=== PATIENT | male | born 1980 | race African-American/Black ===

== ENCOUNTER 2019-03-23 10:56 | Emergency (ER) | payer OTHER, SELFPAY ==
[2019-03-23 11:05] VITALS: BP 142/81; PULSE 98; RESP 16; TEMP 36.8; O2SAT 100
--- NOTE | 2019-03-23 11:26 | ED.URI ---
HPI - URI/Sore Throat General Chief Complaint: Upper Respiratory Infection Stated Complaint: Sore Throat/Stuffy Nose Time Seen by Provider: 03/23/19 11:26 Source: patient and RN notes reviewed History of Present Illness HPI Narrative: Patient is a 38-year-old male that presents the urgent care with complaints of sore throat, stuffy nose, left ear pain, postnasal drainage, body aches. Patient states that started 3 days ago and he is taken some of his mother's old amoxicillin. Patient is also used [id number] cough medication. States that his daughter was diagnosed with the flu. No other acute complaints. No acute distress noted. Patient aware the plan of care. Related Data Allergies Allergy/AdvReac Type Severity Reaction Status Date / Time No Known Allergies Allergy Verified 03/23/19 11:23 Review of Systems Review of Systems: Narrative: CONSTITUTIONAL: Reports of chills EYES: Denies visual changes, redness, or discharge. ENT: Reports of postnasal drainage, nasal congestion, sore throat CARDIOVASCULAR: Denies chest pain, palpitations, or edema. RESPIRATORY: Denies cough or dyspnea. GASTROINTESTINAL: Denies abdominal pain, nausea, vomiting, or diarrhea. GENITOURINARY: Denies dysuria or hematuria. SKIN: Denies rash or itching. MUSCULOSKELETAL: Denies back pain, joint pain; reports of body aches NEUROLOGIC: Denies headache, numbness, or weakness. All other systems reviewed are negative, except as documented in HPI. PMFSH Social History Social History Smoking status: Current some day smoker Tobacco type: cigars Comments At the time of my signature, I reviewed and agree with the nursing past medical, surgical, social, and family history. There is no relevant family history pertinent to the patient complaint. Exam Narrative: Exam Narrative: GENERAL: This is a well-nourished, well-developed patient, in no apparent distress. HEAD: normocephalic, atraumatic. EYES: PERRL. Sclera clear/white. Vision is grossly intact. EARS: External ears normal, auditory canals clear and without drainage, mild fluid noted behind bilateral TMs, TMs normal without perforation. Hearing grossly intact. NOSE: External nose normal with no obvious nasal discharge, bilateral erythemic nares with clear rhinorrhea THROAT: Mucous membranes moist, moderate erythema noted posterior oropharynx with moderate postnasal drainage. NECK: Neck supple, non-tender without lymphadenopathy, masses or thyromegaly. CARDIOVASCULAR: Regular rate and rhythm without murmurs, gallops, or rubs. RESPIRATORY: Clear to auscultation. Breath sounds equal bilaterally. No wheezes, rales, or rhonchi. SKIN: warm, intact with no suspicious lesions or rash, good texture and turgor. NEURO: awake, alert, and oriented to person, place and time. There were no obvious focal neurologic abnormalities. EXTREMITIES: No clubbing, cyanosis, or edema. Course Vital Signs Vital signs: Vital Signs Temperature 98.3 F 03/23/19 11:05 Pulse Rate 98 03/23/19 11:05 Respiratory Rate 16 03/23/19 11:05 Blood Pressure 142/81 H 03/23/19 11:05 Pulse Oximetry 100 03/23/19 11:05 Temperature 98.3 F 03/23/19 11:05 Pulse Rate 98 03/23/19 11:05 Respiratory Rate 16 03/23/19 11:05 Blood Pressure 142/81 H 03/23/19 11:05 Pulse Oximetry 100 03/23/19 11:05 Reviewed?patient is informed that they may have pre-hypertension or hypertension based on a blood pressure reading in the department. I recommend the patient call the primary care provider listed on their discharge instructions or a physician of their choice this week to arrange follow-up for further evaluation of possible pre-hypertension or hypertension. MDM - URI/Sore Throat MDM Narrative Medical decision making narrative: Reviewed lab results with the patient. He is aware that strep swab was negative. Educated patient on culture we will call within 72 hours if culture is po
== END 2019-03-23 11:43 | disposition home or self-care (01) ==
PROVIDERS: Emergency Provider Nurse Practitioner Family
DX: B34.9 Viral infection, unspecified (principal); F17.290 Nicotine dependence, other tobacco product, uncomplicated
CPT/HCPCS: 87081; 87804; 87880; 99213; G0463

== ENCOUNTER 2019-05-15 11:53 | Outpatient (CLI) | payer OTHER, SELFPAY ==
[2019-05-15 16:44] LABS: Basophils Absolute Auto 0.1 K/mm3 (0.0-0.1); Basophils Percent Auto 0.8 % (0.2-1.2); Eosinophils Absolute Auto 0.2 K/mm3 (0-0.3); Eosinophils Percent Auto 3.1 % (0-4.4); Hematocrit 50.9 % (42.0-52.0); Hemoglobin 16.9 g/dL (14.0-18.0); Immature Granulocyte Absolute 0.02 K/mm3 (0.00-0.031); Immature Granulocyte Percent A 0.3 % (0-0.5); Lymphocytes Absolute Auto 2.75 K/mm3 (0.9-3.2); Lymphocytes Percent Auto 35.1 % (18.3-44.2); Mean Corpuscular HGB Conc 33.2 g/dl (32-36); Mean Corpuscular Hemoglobin 29.4 pg (26-34); Mean Corpuscular Volume 88.7 fl (80-100); Mean Platelet Volume 9.3 fl (7.4-10.4); Monocytes Absolute Auto 0.5 K/mm3 (0.1-0.6); Monocytes Percent Auto 6.5 % (2.6-8.5); Neutrophils Absolute Auto 4.3 K/mm3 (1.3-6.7); Neutrophils Percent Auto 54.2 % (45.5-73.1); Platelet Count Result 321 k/mm3 (150-375); Red Blood Count 5.74 M/mm3 (4.6-6.20); Red Cell Distribution Width 12.9 % (11.5-14.5); White Blood Count 7.8 K/mm3 (4.5-10.0)
[2019-05-15 16:48] LABS: Add Urine Microscopic? YES; Appearance Urine Clear (Clear); Bilirubin Urine Negative (Negative); Blood Urine Negative (Negative); Color Urine Yellow (Yellow); Glucose Urine UA Negative (Negative); Ketones Urine Negative (Negative); Leukocyte Esterase Ur Negative LEU/UL (Negative); Mucus Urine Rare /lpf; Nitrate Urine Negative (Negative); Protein Urine Negative (Negative); RBC Urine 0-2 /hpf (0-2); Specific Grav Ur 1.024 (1.001-1.035); Squamous Epithelial Cell Urine Occasional /hpf (Few); Urobilinogen Urine Negative mg/dL (<2.0); WBC Urine 0-3 /hpf
[2019-05-15 16:57] LABS: Alanine Aminotransferase 25 U/L (4-50); Albumin Level 4.3 g/dL (3.5-5.1); Alkaline Phosphatase 67 U/L (38-126); Amylase 40 U/L (30-110); Aspartate Amino Transferase 28 U/L (17-59); Bilirubin,Total 0.6 mg/dL (0.2-1.3); Blood Urea Nitrogen 14 mg/dL (9-20); CRP < 0.5 mg/dL (<1.0); Calcium 9.4 mg/dL (8.4-10.2); Carbon Dioxide 30 mmol/L (22-30); Chloride 102 mmol/L (98-107); Estimated Glomerular Filt Rate > 60; Glucose 141 mg/dL (75-110); Lipase 50 U/L (23-300); Magnesium 1.8 mg/dL (1.6-2.3); Potassium 4.4 mmol/L (3.4-5.0); Sodium 137 mmol/L (137-145)
== END 2019-05-15 11:54 | disposition home or self-care (01) ==
LOC: ANHBWCLAB 11:56
PROVIDERS: PCP Family Medicine; Visit Provider Family Medicine
DX: Z79.899 Other long term (current) drug therapy (principal); R11.2 Nausea with vomiting, unspecified; K52.1 Toxic gastroenteritis and colitis; T36.95XA Adverse effect of unspecified systemic antibiotic, initial encounter
CPT/HCPCS: 36415; 80053; 81001; 82150; 83690; 83735; 85025; 86140

== ENCOUNTER 2019-05-16 10:29 | Outpatient (CLI) | payer OTHER, SELFPAY ==
[2019-05-21 14:26] LABS: EBV Nuclear Ab Interpretation Past; EBV Virus Capsid Ag IgM Ab <36.00 U/mL (<36.00)
== END 2019-05-16 10:30 | disposition home or self-care (01) ==
LOC: ANHBWCLAB 10:30
PROVIDERS: PCP Family Medicine; Visit Provider Family Medicine
DX: R11.2 Nausea with vomiting, unspecified (principal); K52.1 Toxic gastroenteritis and colitis; T36.95XA Adverse effect of unspecified systemic antibiotic, initial encounter
CPT/HCPCS: 36415; 86664; 86665; 87045; 87046; 87427

== ENCOUNTER 2019-05-25 10:57 | Emergency (ER) | payer OTHER, SELFPAY ==
[2019-05-25 11:02] VITALS: BP 156/73; PULSE 98; RESP 16; TEMP 36.4; O2SAT 100
--- NOTE | 2019-05-25 11:18 | ED.GENADULT ---
HPI - General Adult General Chief complaint: Extremity Injury, Upper Stated complaint: right pointer injury Time Seen by Provider: 05/25/19 11:37 Source: patient Mode of arrival: ambulatory Limitations: no limitations History of Present Illness HPI narrative: 39-year-old male patient presents to the [facility] with complaints of right index finger pain. Patient states that he is a diabetic that is currently taking metformin. Patient denies any insulin. Patient states that he does bite his fingers a lot and has since he was a child and states he knows he gets a lot of infections when he does this. Patient states that he noticed that the swelling to the tip of the right index finger has gotten increasingly worse the past 2 to 3 days. Patient states he has been warm soaking it and just regular warm water as well soaking it and hydrogen peroxide. Patient states he does take Sinclair on a daily basis for back pain but he states that that has not helped pain either. Patient states he was unable to sleep last night due to the throbbing pain. Denies any discharge coming from the site that he is aware of. Denies any fevers. Related Data Allergies Allergy/AdvReac Type Severity Reaction Status Date / Time No Known Allergies Allergy Verified 05/25/19 11:13 Review of Systems Review of Systems: Narrative: CONSTITUTIONAL: Denies fever, chills, or sweats. EYES: Denies visual changes, redness, or discharge. ENT: Denies rhinorrhea, congestion, sore throat, or otalgia. CARDIOVASCULAR: Denies chest pain, palpitations, or edema. RESPIRATORY: Denies cough or dyspnea. GASTROINTESTINAL: Denies abdominal pain, nausea, vomiting, or diarrhea. GENITOURINARY: Denies dysuria or hematuria. SKIN: Denies rash or itching. Positive swelling and pain to the right index finger around the nail x2 to 3 days. MUSCULOSKELETAL: Denies back pain, joint pain, or myalgia. NEUROLOGIC: Denies headache, numbness, or weakness. PSYCHIATRIC: Denies anxiety or depression. [facility] Past Medical History Medical History Anxiety Essential hypertension PTSD (post-traumatic stress disorder) Seasonal allergic reaction Surgical History Surgical History H/O hand surgery Family History Family History Father Hypertension Diabetes mellitus Mother Lupus Anxiety Social History Social History Smoking status: Current some day smoker Tobacco type: cigars Alcohol intake: never Substance use: never Comments At the time of my signature I agree with nursing past medical history, surgical, social, and family history. There is no relevant family history pertinent to the presenting complaint. Exam Narrative: Exam Narrative: GENERAL: Well-appearing, well-nourished, and in no acute distress. HEAD: Normocephalic, atraumatic. EYES: PERRLA and EOMI. ENT: Nares clear, no rhinorrhea or epistaxis. Mucous membranes moist. NECK: Supple. No lymphadenopathy CHEST: Clear to auscultation. No respiratory distress. HEART: Regular rate and rhythm. No murmur heard. Normal peripheral pulses. ABDOMEN: Soft, nontender, nondistended, normal active bowel sounds. EXTREMITIES: Normal range of motion. No edema. SKIN: Warm, dry, no rash. Patient has swelling, warmth and tenderness noted to the right distal index finger right around the nail. Very tender to the touch. There is no active drainage noted. NEURO: No focal deficits. Alert and oriented x3. Course Vital Signs Vital signs: Vital Signs Temperature 36.4 C L 05/25/19 11:02 Pulse Rate 98 05/25/19 11:02 Respiratory Rate 16 05/25/19 11:02 Blood Pressure 156/73 H 05/25/19 11:02 Pulse Oximetry 100 05/25/19 11:02 Temperature 36.4 C L 05/25/19 11:02 Pulse Rate 98 05/25/19 11:02 Respiratory Rate 16 04
== END 2019-05-25 11:56 | disposition home or self-care (01) ==
PROVIDERS: Emergency Provider Nurse Practitioner Family; PCP Family Medicine
DX: L03.011 Cellulitis of right finger (principal); E11.9 Type 2 diabetes mellitus without complications; Z79.84 Long term (current) use of oral hypoglycemic drugs; I10 Essential (primary) hypertension; F17.290 Nicotine dependence, other tobacco product, uncomplicated
CPT/HCPCS: 10160; 99213; G0463

== ENCOUNTER → 2019-06-14 00:10 | Day surgery (SDC) | payer OTHER, SELFPAY ==
[2019-06-12 13:43] VITALS: BMI 28.0
[2019-06-14 11:22] VITALS: BMI 27.4
[2019-06-14 11:40] LABS: Glucose Point of Care 173 (65-105)
[2019-06-14 11:41] VITALS: BP 131/86; PULSE 86; RESP 16; TEMP 36.7; O2SAT 98
[2019-06-14] MEDS: LACTATED RINGERS 1,000 ML 150 ML IV CONT (12:00)
--- NOTE | 2019-06-14 12:48 | WPDANESEPPF ---
Anes - Initial Pre Proc Eval Procedure: Operation Date: 06/14/19 12:30 Proposed Procedures p Esophagogastroduodenoscopy - Kelechi Sandoval MD Date/Time: 06/14/19 12:48 Surgeon: Kelechi Sandoval MD Pre Op Diagnosis: Abdominal Pain Patient Data Age: 39 Gender: M Height: 5 ft 10 in Weight: 86.9 kg Last Vital Signs Temp 36.7 C 06/14/19 11:41 Pulse 86 06/14/19 11:41 Resp 16 06/14/19 11:41 BP 131/86 06/14/19 11:41 Pulse Ox 98 06/14/19 11:41 Allergies Allergy/AdvReac Type Severity Reaction Status Date / Time No Known Allergies Allergy Verified 06/14/19 11:21 Home Medications Medication Instructions Recorded Confirmed Type atenolol 50 mg tablet 50 mg PO DAILY #90 tablet 03/23/19 06/14/19 Rx sertraline 50 mg tablet 100 mg PO DAILY #60 tablet 04/16/19 06/14/19 Rx triamterene 37.5 1 tablet PO QAM 06/04/19 06/14/19 History mg-hydrochlorothiazide 25 mg tablet alprazolam 0.5 mg tablet 0.5 mg PO DAILY PRN #30 tablet 06/08/19 06/12/19 Rx amlodipine 10 mg PO DAILY 06/14/19 06/14/19 History cephalexin 1,000 mg PO Q12H 06/14/19 06/14/19 History Laboratory Tests 06/14/19 11:38 POC Capillary Glucose 173 mg/dl H mg/dl (65-105) Patient hx anesthesia problems: none Family hx anesthesia problems: none PMFSH Past Medical History Medical History Anxiety Essential hypertension PTSD (post-traumatic stress disorder) Seasonal allergic reaction Surgical History Surgical History H/O hand surgery Family History Family History Father Hypertension Diabetes mellitus Mother Lupus Anxiety Social History Social History Smoking status: Former smoker Tobacco type: cigars Alcohol intake: never Substance use: never Anes - Eval Final PreProcedure Day of Procedure 06/14/19 12:48 Patient weight: overweight Heart: regular rate and rhythm Lungs: clear to auscultation Airway: Mallampati scale class II Neurological: alert and oriented Last oral intake: >/= 8 hours ASA classification: III Emergent: no Anesthetic plan: proceed Anesthesia type and monitoring: general GIVS and standard monitoring Informed Consent: The patient's anesthetic plan and its attendant risks and benefits were discussed with the patient/family/POA. Questions were solicited and answers provided to the satisfaction of the patient/family/POA.
--- NOTE | 2019-06-14 16:27 | SUR.PREOP ---
1405 PATIENT LEFT AMA DUE TO DELAY WITH STARTING PROCEDURE. ROBERTO CARLOS BLOOM
== END | disposition home or self-care (01) ==
PROVIDERS: PCP Family Medicine; Visit Provider Internal Medicine Gastroenterology
PROC: 0DJ08ZZ Inspection of Upper Intestinal Tract, Via Natural or Artificial Opening Endoscopic (ICD-10-PCS; CPT 43235; principal; 2019-06-14 12:30)
DX: R10.11 Right upper quadrant pain (principal); R10.12 Left upper quadrant pain; Z53.29 Procedure and treatment not carried out because of patient's decision for other reasons
CPT/HCPCS: 99212; G0463; J2001; J2704; J7120

== ENCOUNTER 2019-11-05 00:47 | Outpatient (CLI) | payer OTHER, MEDICAID, SELFPAY ==
[2019-11-05 18:01] LABS: SARS-CoV-2 RNA PCR Negative
== END 2019-11-05 00:48 | disposition home or self-care (01) ==
LOC: ANHCOVIDDT 00:47
PROVIDERS: PCP Family Medicine; Visit Provider Urology
DX: Z01.812 Encounter for preprocedural laboratory examination (principal); Z20.828 Contact with and (suspected) exposure to other viral communicable diseases
CPT/HCPCS: 87635; C9803; U0003

== ENCOUNTER 2019-11-07 00:51 | Day surgery (SDC) | payer MEDICAID, SELFPAY ==
[2019-10-25 15:09] VITALS: BMI 28.1
[2019-11-07] MEDS: ACETAMINOPHEN 500 MG TABLET 1000 MG PO (10:28)
[2019-11-07 10:30] VITALS: BP 144/80; PULSE 101; RESP 18; TEMP 36.6; O2SAT 98
[2019-11-07 10:47] LABS: Glucose Point of Care 204 (65-105)
[2019-11-07] MEDS: LACTATED RINGERS 1,000 ML 30 ML IV CONT (11:01)
--- NOTE | 2019-11-07 11:09 | SUR.PREOP ---
Notified Dr. Santos patient's BG 204 in pre op check. Per Dr. Santos no further orders indicated at this time.
--- NOTE | 2019-11-07 11:14 | P.PNAN_ITS ---
Anes - Initial Pre Proc Eval Procedure: Operation Date: 11/07/19 12:00 Proposed Procedures p Excision And CO2 Laser Penile Condyloma - Hema Gallo MD Date/Time: 11/07/19 11:14 Surgeon: Hema Gallo MD Pre Op Diagnosis: Penile Condylomas Patient Data Age: 39 Gender: M Height: 5 ft 9 in Weight: 90.4 kg Last Vital Signs Temp 97.9 F 11/07/19 10:30 Pulse 101 H 11/07/19 10:30 Resp 18 11/07/19 10:30 BP 144/80 H 11/07/19 10:30 Pulse Ox 98 11/07/19 10:30 Allergies Allergy/AdvReac Type Severity Reaction Status Date / Time No Known Allergies Allergy Verified 06/14/19 11:21 Home Medications Medication Instructions Recorded Confirmed Type triamterene 37.5 1 tablet PO QAM 06/04/19 10/25/19 History mg-hydrochlorothiazide 25 mg tablet amlodipine 10 mg tablet 10 mg PO DAILY #90 tablet 07/03/19 11/07/19 Rx atenolol 50 mg tablet 50 mg PO DAILY #90 tablet 07/03/19 10/25/19 Rx sertraline 50 mg tablet 100 mg PO DAILY #60 tablet 07/24/19 11/07/19 Rx alprazolam 0.5 mg tablet 0.25 mg PO DAILY PRN #14 tablet 09/03/19 11/07/19 Rx Laboratory Tests 11/07/19 10:44 POC Capillary Glucose 204 mg/dl H mg/dl (65-105) Patient hx anesthesia problems: none Family hx anesthesia problems: none [facility] Social History Social History Smoking status: Former smoker Tobacco type: cigars Alcohol intake: never Substance use: never Living arrangements: alone Gender identity (if verbalized by the patient): Male Sexual Orientation (if Verbalized by the Patient): Straight or Heterosexual Spiritual care concerns: No Anes - Eval Final PreProcedure Day of Procedure 11/07/19 11:14 Patient weight: overweight Heart: regular rate and rhythm Lungs: clear to auscultation Airway: Mallampati scale class II Neurological: alert and oriented Last oral intake: >/= 8 hours ASA classification: III Emergent: no Anesthetic plan: proceed Anesthesia type and monitoring: general GIVS and standard monitoring Informed Consent: The patient's anesthetic plan and its attendant risks and benefits were discussed with the patient/family/POA. Questions were solicited and answers provided to the satisfaction of the patient/family/POA.
--- NOTE | 2019-11-07 12:10 | WPDHPUPDATE1 ---
History and Physical Update Update Date/Time: 11/07/19 12:10 History and Physical has been reviewed, including an updated exam of the patient. There are NO changes in the patient's condition. Risks, benefits, and alternatives have been discussed and questions answered. Patient agrees to proceed with procedure.
[2019-11-07] MEDS: ceFAZolin 2 GM/D5W 50 ML 2 GM/50 ML BAG IVPB (12:20)
[2019-11-07] MEDS: NEOMYCIN/POLYMYXIN/BACITRACIN OINTMENT 15 GM TUBE 1 APPLIC TOPICAL (12:48)
--- NOTE | 2019-11-07 12:51 | P.OP_ITS ---
Procedure Note - Detailed Date of procedure: 11/07/19 Pre-op diagnosis: Penile Condylomas Post-op diagnosis: same Procedure performed: Excision and CO2 laser of condyloma Description of procedure: Informed consent was obtained. Patient in the operating room. He was given a mac anesthetic. He was prepped and draped in normal sterile fashion. We injected 0.5% Marcaine without epinephrine. A total of 5 lesions on the penis were identified measuring between 1 and 20 mm in size. A eligibility services representative lesion was excised and sent as specimen. We then used the CO2 laser to cauterize the base of the excision site. We then used the CO2 laser in order to destroy all remaining lesions. We then irrigated, and again used the CO2 laser to all sites. Ascitic acid was applied and there was no residual lesions noted. We then irrigated the placed antibiotic ointment and a compressive dressing. Patient was taken to PACU in stable condition. Anesthesia: MAC Surgeon: Hema Gallo MD Estimated blood loss (mL): 0 Drains: No Packing: No Pathology: yes Complications: No immediate complications Condition: stable Disposition: PACU
[2019-11-07 12:55] VITALS: BP 140/73; PULSE 90; RESP 12; O2SAT 98
[2019-11-07 13:16] LABS: Glucose Point of Care 173 (65-105)
[2019-11-07 13:20] VITALS: BP 133/70; PULSE 80; RESP 14
--- NOTE | 2019-11-07 13:29 | SUR.PHASEII ---
DISCHARGE HOME WHEN STABLE. ADVANCE DIET TOLERATED. ENCOURAGE FLUIDS. CALL OFFICE TO SCHEDULE FOLLOW-UP APPOINTMENT FOR 2 WEEKS [phone]
[2019-11-07 13:49] VITALS: BP 125/78; PULSE 86; RESP 14
[2019-11-07 14:15] VITALS: BP 133/77; PULSE 78; RESP 16
--- NOTE | 2019-11-07 14:22 | SUR.PHASEII ---
Accucheck done on arrival to outpt recovery. Results 173.
[2019-11-07 14:45] VITALS: BP 136/77; PULSE 76; RESP 16
== END 2019-11-07 14:55 | disposition home or self-care (01) ==
PROVIDERS: PCP Family Medicine; Visit Provider Urology
PROC: (CPT 54057; principal; 2019-11-07 12:00)
DX: A63.0 Anogenital (venereal) warts (principal); Z87.891 Personal history of nicotine dependence
CPT/HCPCS: 54057; 11420; 88305; A9270; J0690; J2250; J2704; J3010; J7120

== ENCOUNTER 2021-03-10 13:17 | Outpatient (CLI) | payer OTHER, SELFPAY ==
--- NOTE | ~2021-03-10 | XR_ITS ---
EXAMINATION: XR chest 2V DATE: 03/10/2021 13:25 INDICATION: Cough, unspecified. TECHNIQUE: Frontal and lateral views of the chest were obtained. COMPARISON: None. FINDINGS: The chest demonstrates clear lungs without pneumonia, pleural effusion, or pneumothorax. Th e heart size is normal. IMPRESSION: 1. No acute cardiopulmonary disease. Reviewed, dictated and finalized at location A. 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
== END 2021-03-10 13:18 | disposition home or self-care (01) ==
LOC: ANHBWCIMG 13:18
PROVIDERS: PCP Family Medicine; Visit Provider Family Medicine
DX: R05.9 Cough, unspecified (principal); R09.81 Nasal congestion; U07.1 COVID-19
CPT/HCPCS: 71046

== ENCOUNTER 2021-03-16 15:24 | Outpatient (CLI) | payer OTHER, SELFPAY ==
[2021-03-16 19:02] LABS: D Dimer 0.27 ug/mL (<0.48)
== END 2021-03-16 15:25 | disposition home or self-care (01) ==
LOC: ANHBWCLAB 15:26
PROVIDERS: PCP Family Medicine; Visit Provider Family Medicine
DX: R06.00 Dyspnea, unspecified (principal); R06.02 Shortness of breath
CPT/HCPCS: 36415; 85380

== ENCOUNTER 2021-03-23 12:17 | Outpatient (CLI) | payer OTHER, SELFPAY ==
--- NOTE | 2021-03-23 12:55 | ECG_ITS ---
Measurements Intervals [place] Rate: 78 P: 82 FL: 137 QRS: 65 QRSD: 104 T: -1 QT: 355 QTc: 405 Interpretive Statements SINUS RHYTHM BORDERLINE ST-T WAVE ABNORMALITY- INFERIOR LEADS BASELINE ARTIFACT- I, II, AVR, AVL, AVF, V4 BORDERLINE ECG Electronically Signed On 03-23-2021 13:58:47 FRAUD MANAGER by Jonatan Bailey D.O.
== END 2021-03-23 12:18 | disposition home or self-care (01) ==
LOC: ANHCARD 12:20
PROVIDERS: PCP Family Medicine; Visit Provider Family Medicine
DX: R06.00 Dyspnea, unspecified (principal); R94.31 Abnormal electrocardiogram [ECG] [EKG]
CPT/HCPCS: 93005

== ENCOUNTER 2021-03-25 12:55 | Outpatient (CLI) | payer OTHER, SELFPAY ==
--- NOTE | ~2021-03-25 | CT_ITS ---
EXAMINATION: CTA chest PE protocol DATE: 03/25/2021 13:59 INDICATION: COVID infection in January, TECHNIQUE: Computed tomography angiography (CTA) of the chest was performed with 100 mL Omnipaque-350 intravenous contrast timed to evaluate the pulmonary arteries. Coronal maximum intensity projection 3D-reconstructions were created by the technologist. Automated exposure control and iterative reconst ruction technique were employed. Exam dose: 493.10 mGy-cm total exam DLP. COMPARISON: 03/10/2021 2 view chest FINDINGS: There is diagnostic enhancement of the pulmonary arteries and no evidence of pulmonary embo lism. Normal heart size. No pericardial or pleural effusion. No hilar or mediastinal mass lesion or lymphadenopathy. Normal morphology of the adrenal glands. No pulmonary infiltrate or consolidation or pulmonary mass lesion. Included skeletal structures are unremarkable. IMPRESSION: Negative examination; no evidence of pulmonary embolism Reviewed, dictated and finalized at Location A. Reviewed, dictated and finalized at location B. AND GAS LEASE PUMPER
[2021-03-25 13:33] LABS: Estimated Glomerular Filt Rate > 60
== END 2021-03-25 12:56 | disposition home or self-care (01) ==
LOC: ANHIMG 13:01
PROVIDERS: PCP Family Medicine; Visit Provider Internal Medicine Pulmonary Disease
DX: U07.1 COVID-19 (principal); R06.00 Dyspnea, unspecified
CPT/HCPCS: 71275; Q9967

== ENCOUNTER 2021-04-16 13:17 | Outpatient (CLI) | payer OTHER, MEDICAID, SELFPAY ==
--- NOTE | 2021-04-16 13:38 | ECHO_ITS ---
Patient Info Name: Amadeo Thurman Age: 40 years : 1980 Gender: Male Ht: 69 in Wt: 188 lbs BSA: 2.05 m2 HR: 78 bpm BP: 133 / 86 mmHg Technical Quality: Good Exam Date: 04/16/2021 2:57 PM Exam Location: [facility] Patient Status: Outpatient Admit Date: 04/16/2021 Staff Ordering Physician: Lew Nunez MD Lining Stamper: Kendra Stephens RDCS Attending Provider: Lew Nunez MD Referring Physician: Enrique CASAS; Exam Type: CA echo doppler color flow Study Info Indications - sob Complete two-dimensional, color flow and Doppler transthoracic echocardiogram is performed. Summary 1. Complete two-dimensional, color flow and Doppler transthoracic echocardiogram is performed. 2. Left ventricular chamber dimension is normal. 3. Left ventricular systolic function is normal, estimated at 60-65%. 4. The left ventricular diastolic function is normal. 5. E/e' 6 is not elevated. 6. No pulmonary hypertension, estimated pulmonary arterial systolic pressure is 27 mmHg. 7. There is trace pulmonic regurgitation. Left Ventricle E/e' 6 is not elevated. Left ventricular chamber dimension is normal. Left ventricular systolic function is normal, estimated at 60-65%. The left ventricular diastolic function is normal. Right Ventricle Right ventricular chamber dimension is normal. Right ventricular systolic function is normal. Left Atria Left atrial chamber dimension is normal. Right Atria Right atrial chamber dimension is normal. Aortic Valve The aortic valve is trileaflet. There is no aortic valve stenosis. There is no aortic valve regurgitation. Pulmonic Valve There is trace pulmonic regurgitation. Mitral Valve There is no mitral valve stenosis. There is no mitral valve regurgitation. Tricuspid Valve There is no tricuspid valve regurgitation. No pulmonary hypertension, estimated pulmonary arterial systolic pressure is 27 mmHg. Pericardium/Pleural There is no pericardial effusion. Inferior Vena Cava Normal inferior vena cava with >50% collapse upon inspiration consistent with normal right atrial pressure, 5 mmHg. Aorta The aortic root size at the sinus of Valsalva is normal. Left Ventricular Outflow Tract Name Value Normal LVOT 2D LVOT Diameter 2.0 cm LVOT Doppler LVOT Peak Gradient 5 mmHg LVOT Mean Gradient 3 mmHg LVOT VTI 20 cm LVOT VTI/AV VTI Ratio 0.9 LVOT Stroke Volume 61 ml LVOT CO 15.9 l/min LVOT CI 7.7 l/min/m2 Pulmonic Valve Name Value Normal PV Doppler PV Peak Gradient 3 mmHg Mitral Valve
--- NOTE | 2021-04-17 12:59 | WPDPFTINT ---
PFT Procedure Performed PFT Procedure Performed Spirometry with Pre/Post Bronchodilator Plethysmography (Lung Vol) Diffusing Cap (DLCO) Flow Vol Loop PFT Interpretation Lung volumes were measured with body plethysmography method. Lung volumes are unremarkable. Spirometry showed normal forced vital capacity, normal FEV1 but diminished mid expiratory flow rates at 54% predicted, indicative of mild obstructive airway disease. Following administration of a bronchodilator there was no significant increase in expiratory flow rates. Lung diffusion capacity is mildly reduced at 75% predicted. The flow volume loop is consistent with small airway disease. Impression: Mild obstructive airway disease with no response to bronchodilators on this testing. Mild reduction in lung diffusion capacity.
--- NOTE | 2021-04-17 13:02 | WPDSIXMINUTE ---
Six Minute Walk Procedure Procedure Performed Pulmonary Stress Test (6 min walk) Six Minute Walk This 6 minute walk test was carried out with the patient breathing ambient air. The pre walk oxyhemoglobin saturation was 97%. The patient walked 152 m without any stops. Patient's gait was unstable due to lightheadedness; he used a wheeled walker. The perceived dyspnea at baseline was 1 on the Yehuda scale and increased to 3 at the end of the walk. Impression: Six minute walk test limited by lightheadedness and unsteady gait. No evidence of oxyhemoglobin desaturation.
== END 2021-04-16 13:18 | disposition home or self-care (01) ==
LOC: ANHPFT 13:22
PROVIDERS: PCP Family Medicine; Visit Provider Internal Medicine Pulmonary Disease
DX: R06.02 Shortness of breath (principal); U07.1 COVID-19; J40 Bronchitis, not specified as acute or chronic; Z72.0 Tobacco use; R06.00 Dyspnea, unspecified; R94.2 Abnormal results of pulmonary function studies
CPT/HCPCS: 93306; 94060; 94618; 94726; 94729

== ENCOUNTER 2021-12-25 15:05 | Outpatient (CLI) | payer BC, SELFPAY | END 2021-12-25 15:06 | disposition home or self-care (01) | LOC: ANHBWCLAB 15:07 | PROVIDERS: PCP Family Medicine; Visit Provider Family Medicine | DX: Z79.899 Other long term (current) drug therapy (principal) | CPT/HCPCS: 80299 ==

== ENCOUNTER 2022-04-23 08:12 | Outpatient (CLI) | payer BC, SELFPAY ==
[2022-04-23 19:37] LABS: Hemoglobin A1C 6.5 % (<5.7)
[2022-04-23 19:54] LABS: Alanine Aminotransferase 25 U/L (6-50); Albumin Level 4.6 g/dL (3.5-5.1); Alkaline Phosphatase 71 U/L (38-126); Anion Gap 4 mmol/L (8-16); Aspartate Amino Transferase 61 U/L (17-59); Bilirubin,Total 0.9 mg/dL (0.2-1.3); Blood Urea Nitrogen 16 mg/dL (9-20); Calcium 9.2 mg/dL (8.4-10.2); Carbon Dioxide 30 mmol/L (22-30); Chloride 102 mmol/L (98-107); Estimated Glomerular Filt Rate > 60; Glucose 112 mg/dL (65-110); Sodium 136 mmol/L (137-145)
[2022-04-23 20:04] LABS: Vitamin D 25 Hydroxy 21.9 ng/mL
[2022-04-23 20:18] LABS: MALB Creatinine Ratio 11.4 mg/g (0-30); Microalbumin Urine Random 19.1 mg/L (0-16.7)
[2022-04-28 14:29] LABS: Testosterone Free 95.6 pg/mL (35.0-155.0); Testosterone Total 537 ng/dL (250-1100)
== END 2022-04-23 08:13 | disposition home or self-care (01) ==
LOC: ANHBWCLAB 08:13
PROVIDERS: PCP Family Medicine; Visit Provider Family Medicine
DX: E11.9 Type 2 diabetes mellitus without complications (principal); E55.9 Vitamin D deficiency, unspecified; R68.82 Decreased libido
CPT/HCPCS: 36415; 80053; 82043; 82306; 83036; 84402; 84403

== ENCOUNTER 2022-07-07 10:41 | Outpatient (CLI) | payer BC, MEDICAID, SELFPAY | END 2022-07-07 10:42 | disposition home or self-care (01) | LOC: ANHBWCAUD 10:42 | PROVIDERS: PCP Family Medicine; Visit Provider Family Medicine | DX: R42 Dizziness and giddiness (principal) | CPT/HCPCS: 92557; 92567 ==

== ENCOUNTER 2022-10-04 11:49 | Outpatient (CLI) | payer BC, MEDICAID, SELFPAY ==
[2022-10-04 19:08] LABS: Hematocrit 46.8 % (42.0-52.0); Hemoglobin 15.5 g/dL (14.0-18.0); Mean Corpuscular HGB Conc 33.1 g/dl (32-36); Mean Corpuscular Hemoglobin 29.9 pg (26-34); Mean Corpuscular Volume 90.3 fl (80-100); Mean Platelet Volume 9.5 fl (7.4-10.4); Platelet Count Result 300 k/mm3 (150-375); Red Blood Count 5.18 M/mm3 (4.6-6.20); Red Cell Distribution Width 12.8 % (11.5-14.5)
[2022-10-04 19:48] LABS: Creatinine Urine 273.5 mg/dL
[2022-10-04 19:58] LABS: Amphetamine Screen Urine Negative (Negative); Barbiturate Screen Urine Negative (Negative); Benzodiazepines Screen Urine Positive (Negative); Cannabinoid Screen Urine Negative (Negative); Cocaine Screen Urine Negative (Negative); MALB Creatinine Ratio 13.6 mg/g (0-30); Methadone Screen Urine Negative (Negative); Microalbumin Urine Random 37.1 mg/L (0-16.7); Opiate Screen Urine Positive (Negative); Phencyclidine Screen Urine Negative (Negative)
[2022-10-04 20:13] LABS: Hemoglobin A1C 8.1 % (<5.7)
== END 2022-10-04 11:50 | disposition home or self-care (01) ==
LOC: ANHBWCLAB 11:52
PROVIDERS: PCP Family Medicine; Visit Provider Family Medicine
DX: E11.9 Type 2 diabetes mellitus without complications (principal); Z79.899 Other long term (current) drug therapy; G89.4 Chronic pain syndrome; J45.901 Unspecified asthma with (acute) exacerbation; R42 Dizziness and giddiness
CPT/HCPCS: 36415; 80307; 82043; 83036; 85027

== ENCOUNTER 2022-12-22 09:53 | Outpatient (CLI) | payer MEDICAID, SELFPAY ==
--- NOTE | ~2022-12-22 | XR_ITS ---
XR hand RT min 3V DATE: 12/22/2022 10:09 INDICATION: Right fifth metacarpal fracture TECHNIQUE: 3 views COMPARISON: None FINDINGS: There is a recent comminuted fracture of the neck and head of the fifth metacarpal bone wit h minimal displacement, mild apex dorsal angulation. Plate and screws are noted along the fourth metacarpal bone dorsally. No other fracture or dislocation, periosteal reaction or bone destruction is detected. IMPRESSION: Comminuted fracture of the head and neck of fifth metacarpal Reviewed, dictated and finalized at location B. IGERATOR CAR ICER
== END 2022-12-22 09:54 | disposition home or self-care (01) ==
PROVIDERS: PCP Family Medicine; Visit Provider Plastic Surgery
DX: S62.336A Displaced fracture of neck of fifth metacarpal bone, right hand, initial encounter for closed fracture (principal); W19.XXXA Unspecified fall, initial encounter
CPT/HCPCS: 73130

== ENCOUNTER 2023-11-16 15:53 | Outpatient (CLI) | payer BC, SELFPAY ==
--- NOTE | ~2023-11-16 | XR_ITS ---
Right Hand Technique: PA, oblique, and lateral views were obtained. Clinical History: Pain Findings: No acute fracture or dislocation is seen. Prior ORIF of the fourth metacarpal.. Joint space s are preserved. Soft tissues are unremarkable. Impression: No acute abnormality. Prior ORIF of the fourth metacarpal. Reviewed, dictated and finalized at location . Impression: No acute abnormality. Prior ORIF of the fourth metacarpal.
--- NOTE | ~2023-11-16 | XR_ITS ---
Left Hand Technique: PA, oblique, and lateral views were obtained. Clinical History: Pain Findings: No acute fracture or dislocation is seen. Osseous alignment is anatomic. Joint spaces are p reserved. Soft tissues are unremarkable. Impression: No acute abnormality. Probable chronic healed fracture deformity of the fifth metacarpal distally. Reviewed, dictated and finalized at [facility]. Impression: No acute abnormality. Probable chronic healed fracture deformity of the fifth m etacarpal distally.
== END 2023-11-16 15:54 | disposition home or self-care (01) ==
LOC: ANHIMG 15:56
PROVIDERS: PCP Family Medicine; Visit Provider Family Medicine
DX: M79.642 Pain in left hand (principal); M79.641 Pain in right hand; Z98.890 Other specified postprocedural states
CPT/HCPCS: 73130

== ENCOUNTER 2023-11-21 12:54 | Outpatient (CLI) | payer BC, SELFPAY ==
[2023-11-21 19:07] LABS: Alanine Aminotransferase 17 U/L (6-50); Albumin Level 4.2 g/dL (3.5-5.1); Alkaline Phosphatase 78 U/L (38-126); Anion Gap 6 mmol/L (4-12); Aspartate Amino Transferase 57 U/L (17-59); Bilirubin,Total 0.6 mg/dL (0.2-1.3); Blood Urea Nitrogen 13 mg/dL (9-20); Calcium 9.3 mg/dL (8.4-10.2); Carbon Dioxide 27 mmol/L (22-30); Chloride 103 mmol/L (98-107); Cholesterol 232 mg/dL (0-200); Estimated Glomerular Filt Rate > 60; Glucose 243 mg/dL (65-110); HDL Direct 59 mg/dL; Potassium 3.6 mmol/L (3.4-5.0); Sodium 136 mmol/L (137-145); Triglycerides 108 mg/dL (<150)
[2023-11-21 19:14] LABS: Hematocrit 45.8 % (42.0-52.0); Hemoglobin 15.6 g/dL (14.0-18.0); Mean Corpuscular HGB Conc 34.1 g/dl (32-36); Mean Corpuscular Hemoglobin 30.2 pg (26-34); Mean Corpuscular Volume 88.6 fl (80-100); Mean Platelet Volume 9.5 fl (7.4-10.4); Platelet Count Result 367 k/mm3 (150-375); Red Blood Count 5.17 M/mm3 (4.6-6.20); Red Cell Distribution Width 12.9 % (11.5-14.5); White Blood Count 7.2 K/mm3 (4.5-10.0)
[2023-11-21 19:18] LABS: LDL Cholesterol Direct 131 mg/dL
[2023-11-21 19:28] LABS: Vitamin D 25 Hydroxy 18.6 ng/mL
[2023-11-21 19:34] LABS: Hemoglobin A1C 8.9 % (<5.7)
== END 2023-11-21 12:55 | disposition home or self-care (01) ==
PROVIDERS: PCP Family Medicine; Visit Provider Family Medicine
DX: H81.10 Benign paroxysmal vertigo, unspecified ear (principal); E11.9 Type 2 diabetes mellitus without complications; G43.909 Migraine, unspecified, not intractable, without status migrainosus; G89.4 Chronic pain syndrome; E55.9 Vitamin D deficiency, unspecified; J45.909 Unspecified asthma, uncomplicated; F43.10 Post-traumatic stress disorder, unspecified; I10 Essential (primary) hypertension; F41.9 Anxiety disorder, unspecified
CPT/HCPCS: 36415; 80053; 80061; 82306; 83036; 85027

== ENCOUNTER 2024-06-26 11:15 | Outpatient (CLI) | payer MEDICAID, SELFPAY ==
--- OUTSIDE RECORDS SUMMARY | 2024-06-26 11:22 | XMS_ITS | Encounter Summary ---
Author Organization [facility] Address [address] [place] [address] Phone Care Team Providers Care Metal Buildings Assembler Name Role Phone Florencio Andrade MD Primary Care Provider [phone] Mihai Perdomo MD Primary Care Provider [phone] Ramses Canales MD Unavailable [phone] Reason for Visit * Reason Onset Date Comments Medication Refill 09/12/2019 multiple Encounter Details Date Type Department Care Team (Late st Contact Info) Description 09/12/2019 Refill [facility] [address] [place] [address] Florencio Andrade MD [address] [address] Medication Refill (multiple) Social History Tobacco Use Types Packs/Day Years Used Date Smoking Tobacco: Never Smokeless Tobacco: Never Alcohol Use Standard Drinks/Week Comments Not Currently 0 (1 standard drink = 0.6 oz pur e alcohol) special occassions PHQ-2 Answer Date Recorded PHQ-2 Score 0 02/16/2019 Sexually Active Control Partners Comments Yes Female Sex and Gender Information Value Date Recorded Sex Assigned at Not on file Legal Sex Male 11:50 PM CDT Gender Identity Not on file Sexual Orientation Not on file COVID-19 Exposure Response Date Recorded In the last month, have you been in contact with someone who was confirmed or suspected to have Coronavirus / COVID-19? No / Unsure 08/21/2019 10:46 AM CDT documented as of this encounter Miscellaneous Notes * Telephone Encounter - Mecca Davis APN, CNP - 09/14/2019 5:16 PM CDT [place] monitoring site checked. Approved * Telephone Encounter - Ashely Phan RN - 09/14/2019 3:58 PM CDT Patient calling regarding medication for pain. Patient states that he has trouble getting off of the couch or bending over due to pain. Routing to provider high priority. Patient has seen pain center. Had two injections yesterday and they are not helping. Patient was told that if these don't work he may need surgery. Was told by pain clinic that medications need to be ordered by PCP. Routing to Mecca Davis as she has seen patient for this issue in the past and Dr Andrade isnot in the office. * Telephone Encounter - Mely Toscano - 09/12/2019 4:30 PM CDT Received: []Fax [x]Telephone Call []MyChart Message From: []Pharmacy [x]Patient/Other regarding medication management. Medication name and dose: Requested Prescriptions Pending Prescriptions Disp Refills ??? tiZANidine (ZANAFLEX) 4 MG Tablet 30 Tab 0 Sig: Take 1 Tab by mouth nightly. ??? HYDROcodone-acetaminophen (NORCO) 5-325 MG Tablet 60 Tab 0 Sig: Take 1 Tab by mouth 2 times daily as needed for Moderate or more severe pain. Quantity: (30 day, 90 day, 3 monthly scripts) 30 day Pharmacy preference for this medication: [id number] - [place] [address] [address] [facility] [address] Outcome: [x]Medication pended, routed to surescripts []Medication refused []Informed caller of refills at pharmacy []Additional message to medication management RN []Verbal authorization for written order to pharmacy []Additional message to provider - Message: []Verified medication with pharmacy ELHAM Boone MA Nuclear Medical Tech - Medication Management documented in this encounter Plan of Treatment Not on file documented as of this encounter Visit Diagnoses Not on filedocumented in this encounter Additional Health Concerns Infection Onset Date Last Indicated Resolved Time COVID - 19 09/28/2020 09/28/2020 10/18/2020 12:1 6 AM CDT COVID - 19 07/05/2021 07/05/2021 07/25/2021 12:1 6 AM CDT Assessment Noted Time PHQ-9 Depression Total Score: 0 02/16/19 20 10:48 AM MITER OPERATOR documented as of this encounter Care Teams Metal Buildings Assembler Relationship Specialty Start Date End Date Florencio Andrade MD #[address] [address] PCP - General Family Medicine 02/16/19 06/01/22 Mihai Perdomo MD [address] [place] [address] PCP - General Family Medicine 06/02/22 Ramses Canales MD [address] [place] [address] Consulting Physician Neurology 12/16/22 documented as of this encounter
--- OUTSIDE RECORDS SUMMARY | 2024-06-26 11:22 | XMS_ITS | Encounter Summary ---
Author Organization [facility] Address [address] [place] [address] Phone Care Team Providers Care Graduate Rn Name Role Phone Florencio Andrade MD Primary Care Provider [phone] Mihai Perdomo MD Primary Care Provider [phone] Ramses Canales MD Unavailable [phone] Reason for Visit * Reason Comments Medication Refill Encounter Details Date Type Department Care Team (Late st Contact Info) Description 08/06/2019 Refill [facility] [address] [place] [id number] Florencio Andrade MD #[address] [address] Medication Refill Social History Tobacco Use Types Packs/Day Years [...] have Coronavirus / COVID-19? No / Unsure 07/30/2019 1:36 PM CDT documented as of this encounter Plan of Treatment Not on file documented as of this encounter Visit Diagnoses Not on filedocumented in this encounter Additional Health Concerns Infection Onset Date Last Indicated Resolved Time COVID - 19 09/28/2020 09/28/2020 10/18/2020 12:1 6 AM CDT COVID - 19 07/05/2021 07/05/2021 07/25/2021 12:1 6 AM CDT Assessment Noted Time PHQ-9 Depression Total Score: 0 02/16/19 10:48 AM AIRLINE STEWARDESS documented as of this encounter Care Teams Graduate Rn Relationship Specialty Start Date End Date Florencio Andrade MD #[address] [address] PCP - General Family Medicine 02/16/19 06/01/22 Mihai Perdomo MD [address] [place] [address] PCP - General Family Medicine 06/02/22 Ramses Canales MD [address] [place] [address] Consulting Physician Neurology 12/16/22 documented as of this encounter
--- OUTSIDE RECORDS SUMMARY | 2024-06-26 11:22 | XMS_ITS | Clinical Summary ---
Author Organization [facility] Address [address] [place] [address] Care Team Providers Care Crisis Worker Name Role Phone Mihai Perdomo MD Primary Care Provider [phone] German Davidson MD Unavailable [phone] Ramses Canales MD Unavailable [phone] Allergies Active Allergy Reactions Criticality Noted Date Comments Grass Pollen(K-O-R-T-Swt Matias) Unknown 07/17 Mixed Grasses Unknown 07/17/2020 Medications albuterol sulfate HFA 108 (90 Base) MCG/ACT inhaler Inhale 1 puff into the lungs every 4 (four) hours as needed for Shortness of breath or Wheezing. 3 Active ALPRAZolam (XANAX) 0.5 MG tablet Take 1 tablet (0.5 mg total) by mouth daily as needed for Anxiety. 3 Active metFORMIN (GLUCOPHAGE) 500 MG tablet Take 1 tablet (500 mg total) by mouth 2 (two) times daily. Active atenolol (TENORMIN) 50 MG tablet Take 1 tablet (50 mg total) by mouth daily. 4 Active escitalopram (LEXAPRO) 10 MG tablet Take 1 tablet (10 mg total) by mouth daily. 4 Active hydrOXYzine (ATARAX) 25 MG tablet Take 1 tablet (25 mg total) by mouth 2 (two) times daily as needed (palpitations). 4 Active ibuprofen (MOTRIN) 800 MG tablet Take by mouth every 6 (six) hours as needed. 4 Active zolpidem (AMBIEN) 5 MG tablet Take 1 tablet (5 mg total) by mouth nightly as needed for Sleep. Active amLODIPine (NORVASC) 5 MG tablet Take 1 tablet (5 mg total) by mouth daily. 5 Active cyclobenzaprin e (FLEXERIL) 5 MG tablet Take 1 tablet (5 mg total) by mouth 3 (three) times daily as needed for Muscle Spasms. 4 Active naloxone (NARCAN) 4 MG/0.1ML nasal spray 1 spray by Nasal route as needed for Opioid reversal. may repeat every 2 to 3 minutes in alternating nostrils until medical assistance becomes available 1 each 5 03/14/19 26 Active TRULICITY 0.75 MG/0.5ML injection Inject into the skin once a week. tuesday 5 Active HYDROcodone-ac etaminophen (NORCO) 5-325 MG tabletIndicati ons:Acute Pain < 7 Day Supply Take 1-2 tablets by mouth every 6 (six) hours as needed for Pain. Indications: Acute Pain < 7 Day Supply For Moderate Pain 21 tablet 5 06/14/19 25 Discontin ued(Thera py completed ) Active Problems Problem Noted Date Diagnosed Date Carpal tunnel syndrome on left 04/20/2024 Cubital tunnel syndrome on left 04/20/2024 Carpal tunnel syndrome on right 02/29/2024 Cubital tunnel syndrome on right 02/29/2024 Cocaine abuse 02/02/2021 Nasal abscess 01/02/2021 Speech disturbance 07/17/2020 Depression 05/01/2020 History of hand surgery 03/27/2020 Memory loss 03/27/2020 Right hand pain 03/27/2020 Chronic neck pain 09/27/2019 Elevated hemoglobin A1c 09/27/2019 Chronic prescription benzodiazepine use 07/24/19 Chronic back pain greater than 3 months duration 07/04/2019 Vitamin D deficiency 06/26/2019 Anxiety 02/16/2019 Chronic joint pain 02/16/2019 Chronic narcotic use 02/16/2019 Fatigue 02/16/2019 Hematuria 02/16/2019 High blood pressure 02/16/2019 Hyperlipidemia 02/16/2019 Type 2 diabetes mellitus breanna ated without insulin ([facility]) 02/16/2019 Encounters Date Type Department Care Team Description 06/26/2024 Telephone [facility] [address] [place] [address] Joaquin Torre NP Postprocedure Call; Follow Up Call 06/13/2024 11:00 AM CDT Office Visit [facility] [address] [place] [address] Joaquin Torre, BRIA Postop Followup (post op left ctr cubital tunnel sx 05/04/24) 06/13/2024 Travel 06/12/2024 Telephone [facility] [address] [place] [address] Joaquin Torre, PIPE LINE MAINTENANCE SUPERVISOR Information 05/24/2024 1:40 PM CDT Office Visit [facility] [address] [place] [address] Joaquin Torre NP Postop Followup (post op left ctr cubital tunnel sx 05/04/24) 05/24/2024 Travel 05/10/2024 9:00 AM CDT Allied Health/Nurse Visit [facility] [address] [place] [address] Kwame Crockett MD Allied Health Visit (Left ctr cubital ) 05/10/2024 Travel 05/04/2024 8:30 AM CDT - 05/04/2024 9:56 AM CDT Surgery [place] [address] Kwame Crockett MD left endoscopic carpal tunnel release 05/04/2024 8:08 AM CDT Anesthesia Event [facility] [place] [address] Basim Ch MD Jackson, Samantha Rae, RECOVERY COLLECTOR 05/04/2024 6:36 AM CDT - 05/04/2024 11:00 AM CDT Hospital Encounter [facility] [place] [address] Kwame Crockett MD Discharge Disposition: Home or Self Care (Routine Discharge) 05/04/2024 Orders Only [facility] Orthopedic [facility] Sports Medicine [facility] [address] [place] [address] Kwame Crockett MD 05/04/2024 Travel 04/27/2024 Telephone [facility] Medicine [facility] [address] [place] [address] Kwame Crockett MD Surgery Questions 04/20/2024 Prep for Procedure [facility] [address] [place] [address] Kwame Crockett MD 04/19/2024 9:00 AM CDT Office Visit [facility]opedic [facility] Sports Medicine [facility] [address] [place] [address] Joaquin Torre NP Follow Up (Left CTS) 04/19/2024 Travel 04/09/2024 Telephone [facility]opedic [facility] Medicine [facility] [address] [place] [address] Kwame Crockett MD Schedule Surgery 03/30/2024 Abstract [facility] BUSINESS OFFICE [address] [place] [address] Abstract, Doc Med Group from Last 3 Months Social History Tobacco Use Types Packs/Day Years Used Date Smoking Tobacco: Former Cigars Q uit: 02/06/2024 Passive Smoke Exposure: Current Smokeless Tobacco: Never Tobacco Cessation:Counseling Given: No Alcohol Use Standard Drinks/Week Comments Yes 0 (1 standard drink = 0.6 oz pur e alcohol) social PHQ-2 Answer Date Recorded Patient Health Questionnaire-2 Score 1 02/29/2024 Sex and Gender Information Value Date Recorded Sex Assigned at Male 02/28/2024 2:21 PM GRADER TENDER Legal Sex Male 3:13 PM GRADER TENDER Gender Identity Not on file Sexual Orientation Not on file Last Filed Vital Signs Vital Sign Reading Time Taken Comments Blood Pressure 155/75 06/13/2024 11:16 AM CDT Pulse 67 06/13/2024 11:16 AM CDT Temperature 37.1 C (98.7 F) 06/13/2024 10:36 AM CDT Respiratory Rate 18 05/04/2024 11:00 AM CDT Oxygen Saturation 98% 05/04/2024 11:00 AM CDT Inhaled Oxygen Concentration - - Weight 86.6 kg (191 lb) 06/13/2024 10:36 AM CDT Height 177.8 cm (5' 10 ) 06/13/2024 10:36 AM CDT Body Mass Index 27.41 06/13/2024 10:36 AM CDT Plan of Treatment Upcoming Encounters Date Type Department Care Team (Late st Contact Info) Description 07/11/2024 8:40 AM CDT Office Visit [facility] Orthopedic & Sports Medicine - [place] [address] [place] [address], [place] [address] Joaquin Torre NP [address] [facility] [place] [address] Health Maintenance Due Date Last Done Comments Kidney Health Evaluation 1982 Lipid Panel 1982 Annual Physical 1985 Diabetes: Retinopathy Eye Exam 2000 Hepatitis C 2000 DTaP, Tdap and Td Vaccines (1 - Tdap) 2001 Hepatitis B Vaccines (1 of 3 - 19+ 3-dose series) 2001 Pneumococcal Vaccine: Pediatrics (0 to 5 Years) and At-Risk Patients (6 to 49 Years) (1 of 2 - PCV) 2001 COVID-19 Vaccine ( season) 2023 03/25/2021, 10/23/2020, 09/30/2020, Additional history exists Hemoglobin A1C 05/21/2024 11/21/2023, 06, 03/11/2020, Additional history exists PHQ-2 (Physician [place]) Completed 02/29/2024 HPV Vaccines Aged Out No longer eligi ble based on patient's age to complete this topic Meningococcal B Vaccine Aged Out No l onger eligible based on patient's age to complete this topic Meningococcal Vaccine Aged Out No anmol gabriela eligible based on patient's age to complete this topic RSV Immunizations Under 20 Months Aged Out No longer eligible based on patient's age to complete this topic Procedures Procedure Name Priority Date/Time Associated Diagnosis Comments POCT GLUCOSE - DOCKED DEVICE Routine 05/04/2024 9:23 AM CDT WRIST ARTHROSCOP,RELEASE XVERS LIG 05/04/2024 8:08 AM CDT Carpal tunnel syndrome on left Cubital tunnel syndrome on left Case Notes SCHED BY KELLY IN OFFICE 04/20/2024 [facility] PHONE ASSESS WRIST ARTHROSCOP,RELEASE XVERS LIG 05/04/2024 8:08 AM CDT Carpal tunnel syndrome on left Cubital tunnel syndrome on left Case Notes SCHED BY KELLY IN OFFICE 04/20/2024 LCS PHONE ASSESS POCT GLUCOSE - DOCKED DEVICE Routine 05/04/2024 7:30 AM CDT HEMOGLOBIN, GLYCOSYLATED Routine 11/21/2023 from Last 3 Months or Most Recently Relevant to Health Maintenance Results * (ABNORMAL) POCT glucose (05/04/2024 9:23 AM CDT) Only the most recent of2 resultswithin the time period is included. GLUCOSE POC 138(H) 70 - 99 mg/dL 05/04/2024 9:44 AM CDT [facility] 05/04/2024 9:23 AM CDT us Kwame Crockett MD POCT ORDERABLES - DEVICE Final Result [facility] [address] [place] [address], [place] [phone] * HEMOGLOBIN, GLYCOSYLATED (11/21/2023) HGB A1C 8.9 % 11/21/2023 [facility] Abstract LABORATORY Final Res ult from Last 3 Months or Most Recently Relevant to Health Maintenance Care Teams Crisis Worker Relationship Specialty Start Date End Date Mihai Perdomo MD [address] [place] [address] PCP - General FAMILY PRACTICE 01/26/23 German Davidson MD [address] [place] [address] Physician NEUROMUSCULOSKELETAL MEDICINE 03/06/24 Ramses Canales MD [address] [place] [id number] NEUROLOGY 03/06/24
--- OUTSIDE RECORDS SUMMARY | 2024-06-26 11:22 | XMS_ITS | Encounter Summary ---
Author Organization [facility] Address [facility] [place] [address] Care Team Providers Care Belt Operator Name Role Phone Mihai Perdomo MD Primary Care Provider [phone] German Davidson MD Unavailable [phone] Ramses Canales MD Unavailable [phone] Encounter Details Date Type Department Care Team (Late st Contact Info) Description 01/06/2024 TapCanvas Message Enc [facility] Medical Group Orthopedic & Sports Medicine - [address] [address] [facility] Appointment with [facility] Orthopedics Social History Tobacco Use Types Packs/Day Years Used Date Smoking Tobacco: Some Days Cigars Passive Smoke Exposure: Current Smokeless Tobacco: Never Alcohol Use Standard Drinks/Week Comments Yes 0 (1 standard drink = 0.6 oz pur e alcohol) social PHQ-2 Answer Date Recorded Patient Health Questionnaire-2 Score 0 01/09/2024 Sex and Gender Information Value Date Recorded Sex Assigned at Male 02/28/2024 2:21 PM OYSTER FARMER Legal Sex Male 3:13 PM OYSTER FARMER Gender Identity Not on file Sexual Orientation Not on file documented as of this encounter Functional Status * Over the past 2 weeks, how often have you been bothered by any of the following problems? Question Answer Date of Assessment Author Status Little interest or pleasure in doing things Not at all 01/09/2024 1:52 PM OYSTER FARMER Tomasa Delacruz MA Acti ve Feeling down, depressed, or hopeless Not at all 01/09/2024 1:52 PM OYSTER FARMER Tomasa Delacruz MA Active Patient Health Questionnaire-2 Score 0 01/09/2024 1:52 PM OYSTER FARMER Tomasa Delacruz M A Active documented as of this encounter Plan of Treatment Upcoming Encounters Date Type Department Care Team (Late st Contact Info) Description 07/11/2024 8:40 AM CDT Office Visit [facility] Medical Group Orthopedic & Sports Medicine - [place] [address] [place] [address] Joaquin Torre, COMPUTER TECHNICIAN [address] [facility] [place] [address] documented as of this encounter Visit Diagnoses Not on filedocumented in this encounter Care Teams Belt Operator Relationship Specialty Start Date End Date Mihai Perdomo MD [address] [place] [address] PCP - General FAMILY PRACTICE 01/26/23 German Davidson MD [address] [place] [address] Physician NEUROMUSCULOSKELETAL MEDICINE 03/06/24 Ramses Canales MD [address] [place] [address] NEUROLOGY 03/06/24 documented as of this encounter
--- OUTSIDE RECORDS SUMMARY | 2024-06-26 11:22 | XMS_ITS | Encounter Summary ---
Author Organization [facility] Address [address] [place] [address] Phone Care Team Providers Care Professor Of Archaeology Name Role Phone Florencio Andrade MD Primary Care Provider [phone] Mihai Perdomo MD Primary Care Provider [phone] Ramses Canales MD Unavailable [phone] Reason for Visit * Reason Onset Date Comments Medication Refill 08/04/2020 Encounter Details Date Type Department Care Team (Late st Contact Info) Description 08/04/2020 Refill [facility] [address] [place] [address] Florencio Andrade MD #[address] [address] Medication Refill Social History Tobacco Use Types Packs/Day Years Used Date Smoking Tobacco: Some Days Cigars Smokeless Tobacco: Never Comments:1 or 2 cigars a wee k Alcohol Use Standard Drinks/Week Comments Yes 0 (1 standard drink = 0.6 oz pur e alcohol) special occassions AUDIT-C Answer Date Recorded Q1: How often do you have a drink containing alc ohol? Monthly or less 12/24/2019 Average Number of Drinks Not on file 020 Frequency of Binge Drinking Not on file 12/08 PHQ-2 Answer Date Recorded Total Score - Questions 1-9 0 07/08 Sexually Active Control Partners Comments Yes Female [...] have Coronavirus / COVID-19? No / Unsure 07/17/2020 10:34 AM CDT documented as of this encounter Miscellaneous Notes * Telephone Encounter - Kelli Oswald RN - 08/05/2020 11:09 AM CDT [place] 07/10/20 Medication failed the protocol, provider to review and approve the medication order if appropriate. Requested Prescriptions Pending Prescriptions Disp Refills HYDROcodone-acetaminophen (NORCO) 5-325 MG Tablet 60 Tablet 0 Sig: Take 1 Tablet by mouth 2 times daily as needed for Moderate or more severe pain. healthfinch Not Delegated - Analgesics: Opioid Agonist Combinations Failed - 08/05/2020 11:08 AM Failed - This refill cannot be delegated Passed - Valid encounter within last 6 months Past Office Visits Recent Outpatient Visits 2 weeks ago Type 2 diabetes mellitus treated without insulin (HCC) [facility] - Florencio Truong MD 2 months ago Chronic pain syndrome [facility] - Florencio Truong MD 3 months ago Essential hypertension [facility] - Florencio Truong MD 4 months ago Memory loss [facility] - Florencio Truong MD 5 months ago Type 2 diabetes mellitus treated without insulin (HCC) [facility] - Darek Estevez APN, LINING FOLDER Upcoming Appointments Future Appointments In 2 months Florencio Andrade MD [facility] SURG[facility] COORDINATOR - Recent and Past Visits Recent Visits Date Type Provider Dept 07/17/20 Office Visit Florencio Andrade MD [facility] 06/05/20 Office Visit Florencio Andrade MD [facility] 05/01/20 Office Visit Florencio Andrade MD [facility] 03/27/20 Office Visit Florencio Andrade MD [facility] 02/25/20 Office Visit Darek Romo APN, KADEEM [facility] 12/24/19 Office Visit Florencio Andrade MD [facility] 10/22/19 Office Visit Florencio Andrade MD [facility] 09/27/19 Office Visit Florencio Andrade MD [facility] 08/21/19 Office Visit Florencio Andrade MD [facility] 07/24/19 Office Visit Florencio Andrade MD [facility] Showing recent visits within past 460 days with a meds authorizing provider and meeting all other requirements Future Appointments Date Type Provider Dept 10/21/20 Appointment Florencio Andrade MD [facility] Showing future appointments within next 90 days with a meds authorizing provider and meeting all other requirements ALPRAZolam (XANAX) 0.5 MG Tablet 30 Tablet 0 Sig: Take 1 Tablet by mouth nightly as needed for Anxiety. There is no refill protocol information for this order * Telephone Encounter - Jv Escalante RN - 08/04/2020 12:40 PM CDT Refill request for norco and xanax documented in this encounter Plan of Treatment Not on file documented as of this encounter Goals Goal Patient Goal Type Associated Problems Recent Progress Patient-Stated? Author Anxiety/Depressio n Behavioral Health On track(2020 10:19 AM ORTHODONTIST SMALL BUSINESS OWNER) Carissa Cornell LCSW Note: to have reduction of anxiety and depression symptoms. Goal Reviewed with: patient Readiness to change: Thinking about making a change Department associated with goal: [facility] Steps to achieve goal: to attend, at least twice monthly, counseling sessions. to identify, verbalize and process at least three contributing factors/triggers to anxiety and depression. to identify and verbalize at least three actions/skills to prevent and/or cope with anxiety and depression. to put into action, at least one time weekly, for one month, an action/skill to prevent and or cope with anxiety and depression. to have reduction of anxiety and depression symptoms. Panic attacks Behavioral Health Improving( 10:20 AM ORTHODONTIST SMALL BUSINESS OWNER) Yes Carissa Gorman, CUFFING MACHINE OPERATOR Note: Anything to help me out and get rid of the panic attacks. by addressing anxiety through taking prescribed medications as directed, attending all doctor appts and attending counseling sessions at least 2 times a month. Amadeo will attend counseling to process events and learn 5 coping skills Amadeo will find psychiatrist to manage medications and efficacy documented as of this encounter Visit Diagnoses Diagnosis Anxiety Anxiety state, unspecified documented in this encounter Additional Health Concerns Infection Onset Date Last Indicated Resolved Time COVID - 19 09/28/2020 09/28/2020 10/18/2020 12:1 6 AM CDT COVID - 19 07/05/2021 07/05/2021 07/25/2021 12:1 6 AM CDT Assessment Noted Time PHQ-9 Depression Total Score: 0 07/18/19 21 10:00 AM CDT documented as of this encounter Care Teams Professor Of Archaeology Relationship Specialty Start Date End Date Florencio Andrade MD #[address] [address] PCP - General Family Medicine 02/16/19 06/01/22 Mihai Perdomo MD [address] [place] [address] PCP - General Family Medicine 06/02/22 Ramses Canales MD #[address] [place] [address] Consulting Physician Neurology 12/16/22 documented as of this encounter
--- OUTSIDE RECORDS SUMMARY | 2024-06-26 11:23 | XMS_ITS | Encounter Summary ---
Author Organization [facility] Address [facility] [place] [address] Care Team Providers Care Jack Setter Name Role Phone Mihai Perdomo MD Primary Care Provider [phone] German Davidson MD Unavailable [phone] Ramses Canales MD Unavailable [phone] Reason for Visit * Reason Onset Date Comments Postprocedure Call 06/26/2024 Follow Up Call 06/26/2024 Encounter Details Date Type Department Care Team (Late st Contact Info) Description 06/26/2024 Telephone [facility] - [place] [address] [place] [address] [phone] Joaquin Dick, BRIA [address] [place] [address] Postprocedure Call; Follow Up Call Social History Tobacco Use Types Packs/Day Years [...] Sex Assigned at Male 02/28/2024 2:21 PM [employer] MEMBER Legal Sex Male 3:13 PM [employer] Gender Identity Not on file Sexual Orientation Not on file documented as of this encounter Progress Notes * Kisha Waldron RN - 06/26/2024 9:57 AM CDT Called pt and made aware to do scar tissue massage and go to therapy. Joaquin dick plasterer helper is sending out a medrol dose pack. Pt to follow up 07/11/24 * Dayan Maddie Little - 06/26/2024 8:38 AM CDTSummary: LT hand update - CTR cubital tunnel sx 05/04/24 Pt called stating that his LT hand is in pain still and he said that it needs to get fixed, said the elbow is doing good. He states that that OT is not helping him, the therapist told him that there is still scare tissue in there, she told him to call us and let us know. [phone] documented in this encounter Plan of Treatment Upcoming Encounters Date Type Department Care Team (Late st Contact Info) Description 07/11/2024 8:40 AM CDT Office Visit [facility] - [place] [address] [place] [address] Joaquin Dick NP [address] [place] [address] documented as of this encounter Visit Diagnoses Not on filedocumented in this encounter Care Teams Jack Setter Relationship Specialty Start Date End Date Mihai Perdomo MD [address] [place] [address] PCP - General FAMILY PRACTICE 01/26/23 German Davidson MD [address] [place] [address] Physician NEUROMUSCULOSKELETAL MEDICINE 03/06/24 Ramses Canales MD [address] [facility] [place] [address] NEUROLOGY 03/06/24 documented as of this encounter
--- OUTSIDE RECORDS SUMMARY | 2024-06-26 11:23 | XMS_ITS | Encounter Summary ---
Author Organization [facility] Address [address] [place] [address] Phone Care Team Providers Care French Drawer Name Role Phone Florencio Andrade MD Primary Care Provider [phone] Mihai Perdomo MD Primary Care Provider [phone] Ramses Canales MD Unavailable [phone] Reason for Visit * Reason Onset Date Comments Medication Refill 01/18/2020 Encounter Details Date Type Department Care Team (Late st Contact Info) Description 01/18/2020 Refill [facility] [address] [place] [address] Florencio Andrade MD #[address] [address] Medication Refill Social History Tobacco Use Types [...] on file 12/08 PHQ-2 Answer Date Recorded PHQ-2 Score 0 [...] have Coronavirus / COVID-19? No / Unsure 01/01/2020 1:59 PM COLLATOR OPERATOR documented as of this encounter Miscellaneous Notes * Telephone Encounter - Gertrudis Waller RN - 01/18/2020 2:41 PM CST Medication failed the protocol, provider to review and approve the medication order if appropriate.Last OV , last UDS 07/24/19. Requested Prescriptions Pending Prescriptions Disp Refills HYDROcodone-acetaminophen (NORCO) 5-325 MG Tablet 60 Tab 0 Sig: Take 1 Tab by mouth 2 times daily as needed for Moderate or more severe pain. Not Delegated - Analgesics: Opioid Agonist Combinations Failed - 01/18/2020 2:07 PM Failed - This refill cannot be delegated Passed - Valid encounter within last 6 months Past Office Visits Recent Outpatient Visits 3 weeks ago Chronic pain syndrome [facility] - Florencio Truong MD 2 months ago Chronic [facility] greater than 3 [facility] months [facility] 5 months ago Chronic pain syndrome [facility] Florencio Truong MD 5 months ago Chronic prescription benzodiazepine use [facility] Florencio Truong MD Upcoming Appointments Future Appointments In 3 weeks Lupe Sanchez, SLITTER OPERATOR [facility] In 1 month Darek Romo APN, ELECTRONIC HEAT SEAL OPERATOR [facility] TEXTILE MACHINE OPERATOR - Recent and Past Visits Recent Visits Date Type Provider Dept 12/24/19 Office Visit Florencio Andrade MD [facility] 10/22/19 Office Visit Florencio Andrade MD [facility] 09/27/19 Office Visit Florencio Andrade MD [facility] 08/21/19 Office Visit Florencio Andrade MD [facility] 07/24/19 Office Visit Florencio Andrade MD [facility] 07/10/19 Office Visit Mecca Davis APN, ELECTRONIC HEAT SEAL OPERATOR [facility] 07/04/19 Telemedicine Florencio Andrade MD [facility] 06/26/19 Office Visit Florencio Andrade MD [facility] 06/21/19 Telemedicine Florencio Andrade MD [facility] 05/15/19 Telemedicine [facility] Showing recent visits within past 460 days with a meds authorizing provider and meeting all other requirements Future Appointments Date Type Provider Dept 02/25/20 Appointment Darek Romo APN, ELECTRONIC HEAT SEAL OPERATOR [facility] future appointments within next 90 days with a meds authorizing provider and meeting all other requirements tiZANidine (ZANAFLEX) 4 MG Tablet 30 Tab 0 Sig: Take 1 Tab by mouth nightly. Not Delegated - Analgesics: Muscle Relaxants Failed - 01/18/2020 2:07 PM Failed - This refill cannot be delegated Passed - Valid encounter within last 6 months Past Office Visits Recent Outpatient Visits 3 weeks ago Chronic pain syndrome [facility] Florencio Truong MD 2 months ago Chronic back pain greater than 3 months duration [facility] Florencio Truong MD 3 months ago Chronic back pain greater than 3 months duration [facility] Florencio Arriaga MD 5 months ago Chronic pain syndrome [facility] Florencio Truong MD 5 months ago Chronic prescription benzodiazepine use [facility] Florencio Truong MD Upcoming Appointments Future Appointments In 3 weeks Lupe Sanchez, SLITTER OPERATOR [facility] In 1 month Darek Romo APN, ELECTRONIC HEAT SEAL OPERATOR [facility] - Family Medicine - [facility] TEXTILE MACHINE OPERATOR - Recent and Past Visits Recent Visits Date Type Provider Dept 12/24/19 Office Visit [facility]ncio Andrade MD [facility] 10/22/19 Office Visit Florencio Andrade, [facility] 09/27/19 Office Visit Florencio Andrade, [facility] 08/21/19 Office Visit Florencio Andrade, [facility] 07/24/19 Office Visit Florencio Andrade MD [facility] 07/10/19 Office Visit Mecca Davis APN, KADEEM [facility] 07/04/19 Telemedicine Florencio Andrade MD [facility] 06/26/19 Office Visit Florencio Andrade MD [facility] 06/21/19 Telemedicine Florencio Andrade, [facility] 05/15/19 Telemedicine Florencio Andrade, [facility] Showing recent visits within past 460 days with a meds authorizing provider and meeting all other requirements Future Appointments Date Type Provider Dept 02/25/20 Appointment Darek Romo APN, ELECTRONIC HEAT SEAL OPERATOR [facility] Showing future appointments within next 90 days with a meds authorizing provider and meeting all other requirements ATOR OPERATOR * Telephone Encounter - Sonja Goode - 01/18/2020 2:04 PM CST RFC: Refill Name of medication needed? Requested Prescriptions Pending Prescriptions Disp Refills ??? HYDROcodone-acetaminophen (NORCO) 5-325 MG Tablet 60 Tab 0 Sig: Take 1 Tab by mouth 2 times daily as needed for Moderate or more severe pain. ??? tiZANidine (ZANAFLEX) 4 MG Tablet 30 Tab 0 Sig: Take 1 Tab by mouth nightly. VITAMIN D2 [id number] Person calling for refill?Amadeo Pharmacy/location for refill to be sent to (if is not a written script)? [facility] [place] 30 or 90 day supply?90 Provider:Rebecca ATOR OPERATOR documented in this encounter Plan of Treatment Not on file documented as of this encounter Visit Diagnoses Diagnosis Chronic pain syndrome documented in this encounter Additional Health Concerns Infection Onset Date Last Indicated Resolved Time COVID - 19 09/28/2020 09/28/2020 10/18/2020 12:1 6 AM CDT COVID - 19 07/05/2021 07/05/2021 07/25/2021 12:1 6 AM CDT Assessment Noted Time PHQ-9 Depression Total Score: 0 02/16/19 20 10:48 AM COLLATOR OPERATOR documented as of this encounter Care Teams French Drawer Relationship Specialty Start Date End Date Florencio Andrade MD #[address] [address] PCP - General Family Medicine 02/16/19 06/01/22 Mihai Perdomo MD [address] [place] [address] PCP - General Family Medicine 06/02/22 Ramses Canalse MD #2 [place] [id number] Consulting Physician Neurology 12/16/22 documented as of this encounter
--- OUTSIDE RECORDS SUMMARY | 2024-06-26 11:23 | XMS_ITS | Clinical Summary ---
Author Organization [facility] Address [address] [place] [address] Phone Care Team Providers Care Slot Machine Repairer Name Role Phone Mihai Perdomo MD Primary Care Provider [phone] Ramses Canales MD Unavailable [phone] Allergies Active Allergy Reactions Criticality Noted Date Comments Mixed Grasses Unknown 07/17/2020 Medications Blood Pressure Monitoring (BLOOD PRESSURE CUFF) Misc Dispense battery-powered arm cuff. Dx: I10 1 Each 0 Active Blood Glucose Monitoring Suppl (ONETOUCH VERIO) w/Device Kit 0 Active albuterol (Ventolin HFA) 108 (90 Base) MCG/ACT Aerosol Solution take 1 Puff by inhalation every 6 hours as needed for Cough. 1 g 1 Active fluticasone (FLONASE) 50 MCG/ACT Suspension 1-2 Sprays by Nasal route daily. Use in each nostril as directed. 9.9 mL 2 Active Additional Information Patient not taking.Reported on 02/11/2023 metFORMIN (GLUCOPHAGE) 500 MG TabletIndication s:Type 2 diabetes mellitus treated without insulin (HCC) Take 1 Tablet by mouth 2 times daily (with meals). 180 Tablet 2 2 Active amLODIPine (NORVASC) 10 MG TabletIndication s:Hypertension, unspecified type Take 1 Tablet by mouth daily. 90 Tablet 2 2 Active ALPRAZolam (XANAX) 0.5 MG Tablet TAKE 1 TABLET BY MOUTH DAILY NEEDED FOR PTSD 3 Active ATENOLOL PO Take by mouth. Act lang cyclobenzaprine (FLEXERIL) 5 MG Tablet Take 1 Tablet by mouth 3 times daily as needed for Muscle spasms. 15 Tablet 4 Active naproxen (NAPROSYN) 500 MG Tablet Take 1 Tablet by mouth 2 times daily as needed for Mild or more severe pain. 20 Tablet 4 Active Mounjaro 2.5 MG/0.5ML Solution Auto-injector ADMINISTER 2.5 MG UNDER THE SKIN WEEKLY FOR 4 WEEKS 4 Active gabapentin (NEURONTIN) 300 MG Capsule Take 1 Capsule by mouth nightly. 30 Capsule 3 5 Active meloxicam (MOBIC) 7.5 MG Tablet Take 1 Tablet by mouth daily. 90 Tablet 3 5 Active Active Problems Problem Noted Date Diagnosed Date COVID-19 02/20/2021 Cocaine abuse 02/02/2021 Nasal abscess 01/02/2021 Speech disturbance 07/17/2020 Depression 05/01/2020 History of hand surgery 03/27/2020 Right hand pain 03/27/2020 Memory loss 03/27/2020 Elevated hemoglobin A1c 09/27/2019 Chronic neck pain 09/27/2019 Chronic prescription benzodiazepine use 07/24/19 20 Chronic back pain greater than 3 months duration 07/04/2019 Vitamin D deficiency 06/26/2019 Chronic narcotic use 02/16/2019 Chronic pain syndrome 02/16/2019 Fatigue 02/16/2019 Hyperlipidemia 02/16/2019 Type 2 diabetes mellitus treated without insulin 02/16/2019 High blood pressure 02/16/2019 Anxiety 02/16/2019 Chronic joint pain 02/16/2019 Hematuria 02/16/2019 Immunizations Immunization Administration Dates Next Due Covid-19, Mrna, Lnp-s, Pf, 30 Mcg/0.3 Ml Dose (Patricia antony) 09/30/2020 Family History Medical History Relation Name Comments Hypertension Brother Diabetes Father Hypertension Father Migraines Mother Seizures Mother Relation Name Status Comments Brother Father Alive Mother Alive Social History Tobacco Use Types Packs/Day Years Used Date Smoking Tobacco: Some Days Cigars Smokeless Tobacco: Never Tobacco Cessation:Ready to Q uit: Not Asked; Counseling Given: Not Answered Comments:1 or 2 cigars a week Alcohol Use Standard Drinks/Week Comments Yes 0 (1 standard drink = 0.6 oz pur e alcohol) special occassions [facility] Utilities Answer Date Recorded In the past 12 months has th e electric, gas, oil, or water company threatened to shut off services in your home? No 02/10/2023 Social Connection and Isolat ion Panel [NHANES] Answer Date Recorded In a typical week, how many times do you talk on the phone with family, friends, or neighbors? More than three times a week 02/10/2023 How often do you get togethe r with friends or relatives? Three times a week 02/10/2023 How often do you attend chur ch or christianity services? 1 to 4 times per year 02/10/2023 Do you belong to any clubs o r organizations such as religious groups, unions, fraternal or athletic groups, or school groups? No 02/10/2023 How often do you attend meet ings of the clubs or organizations you belong to? Patient declined 02/10/2023 Are you , , di vorced, , never , or living with a partner? Never 02/10/2023 AUDIT-C Answer Date Recorded Q1: How often do you have a drink containing alcohol? Monthly or less 02/10/2023 Q2: How many drinks containi ng alcohol do you have on a typical day when you are drinking? Patient does not drink Q3: How often do you have si x or more drinks on one occasion? Patient declined 02/10/2023 Overall Financial Resource Strain (CARDIA) Answe r Date Recorded How hard is it for you to pa y for the very basics like food, housing, medical care, and heating? Patient declined 02/10/2023 PHQ-2 Answer Date Recorded Total Score - Questions 1-9 0 07/09 [facility] Fine of Occupat ional Health - Occupational Stress Questionnaire Answer Date Recorded Do you feel stress - tense, restless, nervous, or anxious, or unable to sleep at night because your mind is troubled all the time - these days? Not at all 02/10/2023 Exercise Vital Sign Answer Date Recorde d On average, how many days pe r week do you engage in moderate to strenuous exercise (like a brisk walk)? 0 days On average, how many minutes do you engage in exercise at this level? Patient declined 02/10/2023 Hunger Vital Sign Answer Date Recorded Within the past 12 months, y ou worried that your food would run out before you got the money to buy more. Never true Within the past 12 months, t he food you bought just didn't last and you didn't have money to get more. Patient declined 05/2023 PRAPARE - Transportation Answer Date Re corded In the past 12 months, has l ack of transportation kept you from medical appointments or from getting medications? No 05/2023 In the past 12 months, has l ack of transportation kept you from meetings, work, or from getting things needed for daily living? No 02/10/2023 Housing Stability Vital Sign Answer Gabriel e Recorded In the last 12 months, was t here a time when you were not able to pay the mortgage or rent on time? No 02/10/19 24 Number of Places Lived in the Last Year Not on f ile 02/10/2023 In the last 12 months, was t here a time when you did not have a steady place to sleep or slept in a senior care (including now)? Patient declined 02/10/2023 Education Answer Date Recorded What is the highest level of school you have completed or the highest degree you have received? 12th grade 02/11/2021 Sexually Active Control Partners Comments Yes Female Sex and Gender Information Value Date Recorded Sex Assigned at Not on file Legal Sex Male 11:50 PM CDT Gender Identity Not on file Sexual Orientation Not on file Last Filed Vital Signs Vital Sign Reading Time Taken Comments Blood Pressure 120/80 02/28/2024 9:12 AM TEMPERING MACHINE OPERATOR Pulse 72 02/28/2024 9:12 AM TEMPERING MACHINE OPERATOR Temperature 36.3 C (97.4 F) 02/28/2024 9:12 AM TEMPERING MACHINE OPERATOR Respiratory Rate 18 02/28/2024 9:12 AM TEMPERING MACHINE OPERATOR Oxygen Saturation 98% 02/28/2024 9:12 AM TEMPERING MACHINE OPERATOR Inhaled Oxygen Concentration - - Weight 87.2 kg (192 lb 4.8 oz) 02/28/2024 9:12 A M TEMPERING MACHINE OPERATOR Height 175.3 cm (5' 9 ) 02/28/2024 9:12 AM TEMPERING MACHINE OPERATOR Body Mass Index 28.4 02/28/2024 9:12 AM TEMPERING MACHINE OPERATOR Plan of Treatment Health Maintenance Due Date Last Done Comments Diabetes: Eye Exam 1982 Diabetes: Foot Exam 1982 Hepatitis C Virus (HCV) Screening 1982 TdaP Immunization 1982 Hepatitis B Immunization (1 of 3 - 19+ 3-dose series) 2001 Pneumococcal Immunization Combined (1 of 2 - PCV) 2001 Diabetes: Hemoglobin A1c 01/16/2021 021, 07/17/2020, 03/11/2020, Additional history exists SARS-COV-2 Immunization ( season) 2023 03/25/2021, 10/23/2020, 09/30/2020 Diabetes: Nephropathy Screening 01/20/2024 01/19/2023, 03/11/2020, 06/22/2019, Additional history exists Influenza Immunization (Season Ended) 2024 Respiratory Syncytial Virus (RSV) Immunization (Adult) (1 - 1-dose 75+ series) 2057 Meningococcal Immunization (ACWY) Aged Out No longer eligible based on patient's age to complete this topic Rotavirus Immunization Aged Out No lo nger eligible based on patient's age to complete this topic Goals Goal Patient Goal Type Associated Problems Recent Progress Patient-Stated? Author Anxiety/Depressio n Behavioral Health On track(2020 10:19 AM TEMPERING MACHINE OPERATOR) No Carissa Groman, ULTRASOUND COORDINATOR Note: to have reduction of anxiety and depression symptoms. Goal Reviewed with: patient Readiness to change: Thinking about making a change Department associated with goal: [facility] Steps to achieve [...] Panic attacks Behavioral Health Improving( 10:20 AM TEMPERING MACHINE OPERATOR) Yes Carissa Gorman, ULTRASOUND COORDINATOR Note: Anything to help me out and get rid of the panic attacks. by addressing anxiety through taking prescribed medications as directed, attending all doctor appts and attending counseling sessions at least 2 times a month. Azucena will attend counseling to process events and learn 5 coping skills Azucena will find psychiatrist to manage medications and efficacy Procedures Procedure Name Priority Date/Time Associated Diagnosis Comments CMP (COMPREHENSIVE METABOLIC PANEL) STAT 01/19/2023 4:15 PM TEMPERING MACHINE OPERATOR HEMOGLOBIN A1C W/ ESTIMATED GLUCOSE Routine 07/17/2020 11:29 AM CDT Type 2 diabetes mellitus treated without insulin (HCC) from Last 3 Months or Most Recently Relevant to Health Maintenance Results * (ABNORMAL) CMP (Comprehensive Metabolic Panel) (01/19/2023 4:15 PM TEMPERING MACHINE OPERATOR) SODIUM 140 136 - 145 mmol/L 01/19/2023 5:23 PM [facility] POTASSIUM 3.7 3.5 - 5.1 mmol/L 01/19/2023 5:23 PM [facility] CHLORIDE 107 98 - 107 mmol/L 01/19/2023 5:23 PM [facility] CO2, VENOUS 26 22 - 30 mmol/L 01/19/2023 5:23 PM [facility] ANION GAP 10.7 <18.0 mmol/L 01/19/2023 5:23 PM [facility] GLUCOSE 134(H) 70 - 99 mg/dL 01/19/2023 5:23 PM [facility] BUN 13 9 - 21 mg/dL 01/19/2023 5:23 PM [facility] CREATININE, BLOOD 1.11 0.70 - 1.30 mg/dL 01/19/2023 5:23 PM [facility] BUN/CREATININE RATIO 12 12 - 20 ratio 01/19/2023 5:23 PM [facility] TOTAL PROTEIN 7.0 6.3 - 8.2 g/dL 01/19/2023 5:23 PM TEMPERING MACHINE OPERATOR [facility] ALBUMIN 4.2 3.5 - 5.0 g/dL 01/19/2023 5:23 PM [facility] A/G RATIO 1.5 1.0 - 2.2 01/19/2023 5:23 PM [facility] CALCIUM 9.3 8.7 - 10.5 mg/dL 01/19/2023 5:23 PM TEMPERING MACHINE OPERATOR [facility] T BILI 0.4 0.2 - 1.2 mg/dL 01/19/2023 5:23 PM [facility] SGOT (AST) 16 5 - 34 U/L 01/19/2023 5:23 PM [facility] SGPT (ALT) 17 0 - 55 U/L 01/19/2023 5:23 PM [facility] ALKALINE PHOSPHATASE 67 40 - 150 U/L 01/19/2023 5:23 PM TEMPERING MACHINE OPERATOR [facility] GFR, ESTIMATED >60 >=60 01/19/2023 5:23 PM [facility] Comment: Creatinine Clearance is the preferred criteria for selecting drug dose adjustments in renally impaired patients. The GFR is provided as additional pertinent clinical information. GFR is reported in mL/min/1.73 sq m. Calculation based on the Chronic Kidney Disease Epidemiology Collaboration (CKD- EPI) equation refit without adjustment for race. GFR, EST. >60 >=60 023 5:23 PM TEMPERING MACHINE OPERATOR [facility] GFR, EST. NONAFRICAN >60 >=60 01/19/2023 5:23 PM [facility] Blood Venipuncture / Unknown 01/19/2023 4:15 PM TEMPERING MACHINE OPERATOR 01/19/2023 5:00 PM TEMPERING MACHINE OPERATOR us Joe Marroquin MD CHEMISTRY ORDERABLES Final Re sult [facility] [address] [place] [address] * (ABNORMAL) HEMOGLOBIN A1C W/ ESTIMATED GLUCOSE (07/17/2020 11:29 AM CDT) HGB-A1C 7.7(H) 4.0 - 6.0 % 07/17/2020 12:55 PM CDT [facility] Est Average Glucose 174.3 mg/dL 07/17/2020 12:55 PM CDT [facility] Blood Venipuncture / Unknown 07/17/2020 11:29 AM CDT 07/17/2020 11:29 AM CDT Narrative [facility] - 07/17/2020 12:55 PM CDT HEMOGLOBIN A1C: DIABETIC PATIENTS: WELL-CONTROLLED: 6.2 - 7.0 INTERMEDIATE WELL-CONTROLLED: 7.0 - 9.0 POORLY-CONTROLLED: >9.0 Florencio Andrade MD CHEMISTRY ORDERABLES Maria Guadalupe l Result [facility] [address] [place] [address] from Last 3 Months or Most Recently Relevant to Health Maintenance Insurance [place] [facility] TPL Care Teams Slot Machine Repairer Relationship Specialty Start Date End Date Mihai Perdomo MD [address] [place] [id number] PCP - General Family Medicine 06/02/22 Ramses Canales MD [address] [place] [address] Consulting Physician Neurology 12/16/22
--- OUTSIDE RECORDS SUMMARY | 2024-06-26 11:23 | XMS_ITS | Encounter Summary ---
Author Organization [facility] Address [address] [place] [address] Care Team Providers Care Booth Cashier Name Role Phone Molly Eid PT [facility] Mihai Hopkins MD Primary Care Provider [phone] Reason for Visit * Reason Comments OT Initial Eval * Consultation (Routine) - Authorized Specialty Diagnoses / Procedures Referred By Contac t Referred To Contact Occupational Therapy Diagnoses Carpal tunnel syndrome, left upper limb Lesion of ulnar nerve, left upper limb Kwame Crockett MD [address] [place] [id number] Phone: tel: fax: [facility] Occupational Therapy [address] [place] [id number] Phone: tel: fax: Referral ID Status Reason Start Date Expiration Date Visits Requested Visits Authorized [id number] Authorized Evaluate and Treat 05/10/2024 06/09/2025 99 99 Encounter Details Date Type Department Care Team (Late st Contact Info) Description 06/18/2024 2:30 PM CDT Therapy [facility] Occupational Therapy [address] [place] [id number] Cathie Renteria OT Carpal tunnel syndrome, left upper limb; Lesion of ulnar nerve, left upper limb Social History Tobacco Use Types Packs/Day Years Used Date Smoking Tobacco: Never Smokeless Tobacco: Never Sex and Gender Information Value Date Recorded Sex Assigned at Not on file Legal 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 male Referring Provider: Kwame Crockett MD [address] [place] [address] Diagnosis: Left cubital tunnel syndrome, left carpal tunnel syndrome Past Medical History: Diagnosis Date Asthma Depression Hypertension Migraines Grass pollen Past Surgical History: Procedure Laterality Date HAND SURGERY Right HAND SURGERY Left Knuckle Subjective: History of present condition: Patient reports a multiple year history of bilateral pain, numbness, tingling, night time waking, dropping items, weakness. He had surgery on right side 03/14/24 (CuTR, CTR), 04/27/24 for left side (CuTR, CTR endoscopic). He reports that the right side recovered well, but the left has really been giving him a hard time recovering- lots of shooting pain. Numbness and tingling have resolved. He is having trouble weightbearing on right hand. He has been referred for therapy to address left post op recovery. Date of surgery: 04/27/24 Surgery details: Left cubital tunnel release, left carpal tunnel release. Next MD Appointment: approximately 1 month Current living situation: Lives alone, but occasionally 18 yo daughter will stay with him. Do you feel safe in your home environment?: [x] Yes [] No Prior level of ADL/IADL: Independent Current functional level: ADL Status (Grooming, Bathing, Dressing, Eating): [] Independent- No Difficulty Performing Self-Care [x] Independent- With Increased Difficulty and/or Time Required [] Independent- With Increased Pain [] Requires assistance for various tasks [] Requires assistance for the majority of ADL's IADL Status (Shopping, Cooking, Driving, Housework): [] Independent- No Difficulty [x] Independent- With Increased Difficulty and/or Time Required [] Independent- With Increased Pain [] Requires assistance for heaver or higher level tasks [] Requires assistance for the majority of tasks Difficulty with weight bearing, opening containers, driving with right hand only Leisure activities [x] Able to participate in leisure activities [x] Unable to participate in leisure activities Details: 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 Walking dog- unable to do that. Sleep [x] Reports adequate sleep to support daily routines [] Reports inadequate sleep to support daily routines Details: occasional waking at night. 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 Work status: [] Not working [] Not working- disabled [] Not working- retired [x] Working-with restrictions [] Working- no restrictions Details: Hand dominance [x] Right [] Left [] Ambidextrous Involved side [] Right [x] Left [] Bilateral Patient's primary goal: to be able to use left hand again. History of prior therapy services: none Numbness [] Yes [x] No Location: Tingling [] Yes [x] No Location: Pain at best (in last week): 8/10 left hand Pain at worst (in last week): 8/10 left hand Are you taking pain medication? [x] Yes [] No Medication using: hydrocodone for back and neck pain. QUICK Dash: 06/18/2024 QUICK DASH Open a tight or new jar 5 - Unable Do heavy bark tanner (e.g., wash [place], floors) 2 - Mild Difficulty Carry a shopping bag or briefcase 1 - No Difficulty Wash your back 1 - No Difficulty Use a knife to cut food 1 - No Difficulty Recreational activities in which you take some force or impact through your arm, shoulder, or hand (e.g., golf, hammering, tennis, etc.) 5 - Unable During the past week, to what extent has your arm, shoulder, or hand problem interfered with your normal social activities with family, friends, neighbours or groups? 3 - Moderately During the past week, were you limited in your work or other regular daily activities as a result of your arm, shoulder or hand problem? 4 - Very Limited Arm, shoulder or hand pain 4 - Severe Tingling (pins and needles) in your arm, shoulder or hand 1 - None During the past week, how much difficulty have you had sleeping because of the pain in your arm, shoulder or hand? 2 - Mild Difficulty Quick DASH Disability/Symptom Score: 40.91 Objective: Observation: surgical incisions at left medial elbow and left volar wrist fully healed. Palpation: no tenderness with palpation to elbow incision, mild tenderness with palpation to left volar wrist incision. AROM Forearm and Wrist Right Left supination/pronation WFL WFL extension/flexion 58/50 42/32 RD/UD 25/30 7/22 AROM of digits WFL - patient notes pain in wrist with left thumb opposition. Hand Strength (pounds) Right Left Excavating Machine Operator 40 24 Lateral pinch 15 9 3 pt pinch 15 6 Strength Forearm and Wrist Right Left Supination 5/5 3+/5 Pronation 5/5 3+/5 Extension 5/5 3+/5 Flexion 5/5 3+/5 Treatment Provided: Educated patient on anatomy related to carpal tunnel syndrome and CTR Educated on scar massage and issued handout and dycem for HEP Issued HEP via [employer] and performed in clinic to ensure proper technique Access Code: [email or web address] URL: [email or web address] Date: 06/18/2024 Prepared by: Cathie Renteria Exercises - Hand and Wrist AROM Tenodesis - 3 x daily - 7 x weekly - 2 sets - 10 reps - Wrist AROM Radial Ulnar Deviation - 3 x daily - 7 x weekly - 2 sets - 10 reps - Wrist Tendon Gliding - 3 x daily - 7 x weekly - 1 sets - 10 reps - Seated Median Nerve Henry - 3 x daily - 7 x weekly - 1 sets - 5 reps - Ulnar Nerve Flossing - 3 x daily - 7 x weekly - 1 sets - 5-10 reps - Ulnar Nerve Flossing - 3 x daily - 7 x weekly - 1 sets - 5-10 reps Assessment: Assessment details: Patient presents with objective deficits including decreased AROM of left wristand decreased left distal UE strength. Subjectively he reports significant pain in left palm limiting his ability to use left hand for ADL, IADL and work activities. Pain with tendon and nerve gliding is indicative of scar adhesions in palm. He will benefit from skilled OT to address current objective deficits and maximize functional presybeterian of left UE. He did well with initial evaluation andtreatment this session and is anticipated to do well in therapy. Pt demonstrated independence/verbalized understanding in: [x] HEP [] Don/doff orthosis [x] All tx listed above [x] Patient education provided this session Impairment list: [] Coordination [] Edema [] Endurance/activity tolerance [] Dexterity [] Flexibility [] Gross motor use [] Muscle tone [x] Pain [x] Range of motion [x] Scar tissue [] Sensation [] Sensory/motor [] Skin integrity [x] Strength Other: Functional Limitations: [x] ADLs [x] IADLs [] Community activities [] Communication [] Education [x] Home management [x] Leisure activities [] Play [] Safety [] Sports [x] Work Other: Environmental Barriers: [] Home [] Work [] Community [x] None Details: Barriers to Therapy: [] Vision [] Hearing [] Cognition [] Transportation [] Financial [x] None Details: Intervention Approach: [] Health promotion [x] Remediation [] Wellness [] Adaptation [] Prevention Prognosis: [] Excellent [x] Good [] Fair [] Poor ST) 06/18/24 Patient to improve AROM of left wrist ext/flex to 50/40 degrees by 3 weeks. 2) 06/18/24 Patient to improve AROM of left wrist RD/UD to 20/30 degrees by 3 weeks. 3) 06/18/24 Patient to improve left agricultural service worker strength to 35 pounds by 4 weeks. 4) 06/18/24 Patient to improve left lat pinch strength to 12 pounds by 4 weeks. 5) 06/18/24 Patient to improve left 3pt pinch strength to 10 pounds by 4 weeks. LT) 06/18/24 Patient to improve left agricultural service worker strength to 45 pounds by 6 weeks. 2) 06/18/24 Patient to improve left forearm and wrist strength to 5/5 by 6 weeks. 3) 06/18/24 Patient to improve quick dash score to 15 or better by 6 weeks. Plan: Frequency/Duration: 1-2 x a week for up to 13 visits total. Awaiting auth from [place] for additional visits beyond evaluation. Plan Details: Patient education, modalities, neuromuscular activities, scar management/mobilization, desensitization, AROM, PROM, strengthening, ADL/IADL/work simulation activities, functional activities, therapeutic exercise. Start time: 02:30pm End time: 03:35pm Cathie PARK/Alta, CHT documented in this encounter Plan of Treatment Not on file documented as of this encounter Visit Diagnoses Diagnosis Carpal tunnel syndrome, left upper limb Lesion of ulnar nerve, left upper limb documented in this encounter Orders Outpatient Referral Count Last Ordered Date st Ordered Date AMB REFERRAL ORDER TO OCCUPATIONAL THERAPY 1 06/18/2024 documented in this encounter Care Teams Booth Cashier Relationship Specialty Start Date End Date Mihai Perdomo MD PCP - General Family Practice 12/15/22 Molly Eid, PT Physical Therapist Physical Therapy 12/07/22 documented as of this encounter
--- OUTSIDE RECORDS SUMMARY | 2024-06-26 11:23 | XMS_ITS | Clinical Summary ---
Author Organization [facility] Address [address] [place] [address] Care Team Providers Care Dirt Bike Racer Name Role Phone Molly Eid PT Unavailable Mihai Hopkins MD Primary Care Provider [phone] Allergies Active Allergy Reactions Criticality Noted Date Comments Grass Pollen Unknown 07/17/2020 Medications budesonide-form oterol (SYMBICORT) 160-4.5 mcg/actuation inhaler Inhale. Active triamcinolone (NASACORT) 55 mcg nasal inhaler Administer into affected nostril(s). Active zolpidem (AMBIEN) 5 mg tabletIndicatio ns:Sleep-Onset Insomnia Take 1 tablet (5 mg total) by mouth Active VENTOLIN HFA 90 mcg/actuation inhaler 7 Active ALPRAZolam (XANAX) 0.5 mg tablet 7 Active HYDROcodone-nadia taminophen (NORCO) 7.5-325 mg per tabletIndicatio ns:Pain 7 Active traMADol (ULTRAM) 50 mg tablet Take 1-2 tablets every 4-6 hours as needed for pain. 25 tablet 7 Active amLODIPine (NORVASC) 10 mg tablet Take 1 tablet (10 mg total) by mouth daily Active cholecalciferol (VITAMIN D-3) 50,000 unit capsule Take 1.25 mg by mouth once a week 3 Active cyclobenzaprine (FLEXERIL) 10 mg tablet Take 1 tablet (10 mg total) by mouth 3 (three) times a day as needed 3 Active fluticasone propionate (FLONASE) 50 mcg/actuation nasal spray Administer 1-2 sprays into affected nostril(s) daily 2 Active ibuprofen (ADVIL,MOTRIN) 800 mg tablet Take by mouth every 6 (six) hours as needed 4 Active metFORMIN (GLUCOPHAGE) 500 mg tablet Take 1 tablet (500 mg total) by mouth 2 (two) times a day Active naproxen (NAPROSYN) 500 mg tablet Take 1 tablet (500 mg total) by mouth 2 (two) times a day as needed 3 Active Active Problems Problem Noted Date Diagnosed Date Bilateral impacted cerumen 10/13/2023 Encounters Date Type Department Care Team Description 06/25/2024 2:30 PM CDT Therapy [facility] [address] [place] [id number] Cathie Renteria OT Carpal tunnel syndrome, left upper limb (Primary Dx); Lesion of ulnar nerve, left upper limb 06/18/2024 2:30 PM CDT Therapy [facility] [address] [place] [phone] Cathie Renteria OT Carpal tunnel syndrome, left upper limb; Lesion of ulnar nerve, left upper limb 06/18/2024 Plan of Care Documentation [facility] [address] [place] [phone] from Last 3 Months Surgical History Surgery Date Site/Laterality Comments HAND SURGERY Right HAND SURGERY Left Knuckle Medical History Medical History Date Comments Hypertension Asthma Depression Migraines Social History Tobacco Use Types Packs/Day Years Used Date Smoking Tobacco: Never Smokeless Tobacco: Never Sex and Gender Information Value Date Recorded Sex Assigned at Not on file 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 Gender Identity Not on file Sexual Orientation Not on file Obstetrics History Last Filed Vital Signs Vital Sign Reading Time Taken Comments Blood Pressure 135/68 05/24/2020 3:30 AM CDT Pulse 71 05/24/2020 3:30 AM CDT Temperature 36.7 C (98 F) 05/24/2020 1:29 AM CDT Respiratory Rate 21 05/24/2020 3:30 AM CDT Oxygen Saturation 97% 05/24/2020 3:30 AM CDT Inhaled Oxygen Concentration - - Weight 84.6 kg (186 lb 9.6 oz) 10/13/2023 8:31 A M CDT Height 175.3 cm (5' 9.02 ) 10/13/2023 8:31 AM CD T Body Mass Index 27.54 10/13/2023 8:31 AM CDT Plan of Treatment Health Maintenance Due Date Last Done Comments Depression Screening 1982 Hepatitis C Screening 1982 Prostate Cancer Screening-PSA 1982 DTaP/Tdap/Td Vaccine (1 - Tdap) 1993 Varicella Vaccines (1 of 2 - 13+ 2-dose series) 04/25/1995 Hepatitis B Screening 2000 Regular Well Visit/Exam 18-64 2000 Covid-19 Vaccine (2023-2 5 season) 2023 03/25/2021, 10/23/2020, 09/28/2020 Influenza Vaccine (Season Ended) 2024 HPV Vaccines Aged Out No longer eligi ble based on patient's age to complete this topic Pneumococcal vaccine <65 Aged Out No longer eligible based on patient's age to complete this topic Insurance [facility] Care Teams Dirt Bike Racer Relationship Specialty Start Date End Date Mihai Perdomo MD PCP - General Family Practice 12/15/22 Molly Eid, PT Physical Therapist Physical Therapy 12/07/22
--- OUTSIDE RECORDS SUMMARY | 2024-06-26 11:23 | XMS_ITS | Clinical Summary ---
Author Organization [facility] Address [address] [place] [address] Phone Care Team Providers Care [employer] Name Role Phone Unavailable Primary Care Provider Unavailabl e Allergies No known active allergies Medications budesonide-form oteroL (SYMBICORT) 160-4.5 mcg/actuation HFA Aerosol Inhaler Take by inhalation. Active triamcinolone acetonide (NASACORT AQ) 55 mcg nasal spray Administer in each nostril. Active zolpidem (AMBIEN) 5 mg tablet Take 5 mg by mouth. Active metFORMIN (GLUCOPHAGE) 500 mg tablet Take 500 mg by mouth 2 times daily with meals. Active Active Problems No known active problems Encounters Date Type Department Care Team Description 06/12/2024 External Device Data [facility] ABSTRACTION Provider, Abstract 05/08/2024 External Device Data [facility] ABSTRACTION Provider, Abstract 04/17/2024 External Device Data [facility] ABSTRACTION Provider, Abstract 04/17/2024 External Device Data [facility] ABSTRACTION Provider, Abstract 04/03/2024 External Device Data [facility] ABSTRACTION Provider, Abstract from Last 3 Months Social History Tobacco Use Types Packs/Day Years Used Date Smoking Tobacco: Never Assessed Sex and Gender Information Value Date Recorded Sex Assigned at Not on file Legal Sex Male 10:52 AM CDT Gender Identity Not on file Sexual Orientation Not on file Last Filed Vital Signs Vital Sign Reading Time Taken Comments Blood Pressure 122/60 08/07/2021 3:09 PM CDT Pulse - - Temperature - - Respiratory Rate - - Oxygen Saturation - - Inhaled Oxygen Concentration - - Weight 81.6 kg (180 lb) 08/07/2021 3:09 PM CDT Height 176.5 cm (5' 9.5 ) 08/07/2021 3:09 PM CDT Body Mass Index 26.2 08/07/2021 3:09 PM CDT Plan of Treatment Health Maintenance Due Date Last Done Comments DTAP/TDAP/TD VACCINES (1 - Tdap) 2001 HEPATITIS B VACCINES (1 of 3 - 19+ 3-dose series) 2001 INFLUENZA VACCINE (#1) 2023 HPV VACCINES Aged Out No longer eligi ble based on patient's age to complete this topic Insurance [employer] [facility] [place] [id number] [place] [address]
--- OUTSIDE RECORDS SUMMARY | 2024-06-26 11:23 | XMS_ITS | Encounter Summary ---
Author Organization [facility] Address [address] [place] [address] Care Team Providers Care Personnel Arbitrator Name Role Phone Molly Eid PT [facility] Mihai Hopkins MD Primary Care Provider [phone] Reason for Visit * Reason Comments OT Treatment * Consultation (Routine) - Authorized Specialty Diagnoses / Procedures Referred By Contac t Referred To Contact Occupational Therapy Diagnoses Carpal tunnel syndrome, left upper limb Lesion of ulnar nerve, left upper limb Kwame Crockett MD [address] [place] [phone] Phone: tel: fax: [facility] Occupational Therapy [address] [place] [address] Phone: tel: fax: Referral ID Status Reason Start Date Expiration Date Visits Requested Visits Authorized [id number] Authorized Evaluate and Treat 05/10/2024 06/09/2025 99 99 Encounter Details Date Type Department Care Team (Late st Contact Info) Description 06/25/2024 2:30 PM CDT Therapy [facility] Occupational Therapy [address] [place] [phone] Cathie Renteria OT Carpal tunnel syndrome, left upper limb (Primary Dx); Lesion of ulnar nerve, left upper limb Social History Tobacco Use Types Packs/Day Years Used Date Smoking Tobacco: Never Smokeless Tobacco: Never Sex and Gender Information Value Date Recorded Sex Assigned at Not on file Legal Sex Male 7:25 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 He is still having severe pain in his left palm. Pain: 8/10 left hand Objective: No objective measures this session. Treatment Provided: MHP to left forearm and hand x 10 min pre tx MNG x 5 CELINA x 5 Straight fist tendon glides x 5 reps Scar massage to left palm/wrist Silver ball manipulation x 3 min Adjusted prefab night splint to neutral wrist position Ball roll for wrist flex/ext, RD/UD x 3 min each Bead trasnfer with wrist flex/ext x 3 min Recommended warm rice desensitization for right hand at home- handout issed IFC and heat at close of therapy for pain control, 6.0mA- 8.2mA x 12 min Assessment: Progress is slow. Patient continues to have significant nerve pain in palm of left hand. He did find some relief with IFC and appears to have been compliant with HEP. He remains appropriate for continued skilled OT at this time. ST) 06/18/24 Patient to improve AROM of left wrist ext/flex to 50/40 degrees by 3 weeks. 2) 06/18/24 Patient to improve AROM of left wrist RD/UD to 20/30 degrees by 3 weeks. 3) 06/18/24 Patient to improve left supervisor hot dip tinning strength to 35 pounds by 4 weeks. 4) 06/18/24 Patient to improve left lat pinch strength to 12 pounds by 4 weeks. 5) 06/18/24 Patient to improve left 3pt pinch strength to 10 pounds by 4 weeks. LT) 06/18/24 Patient to improve left supervisor hot dip tinning strength to 45 pounds by 6 weeks. 2) 06/18/24 Patient to improve left forearm and wrist strength to 5/5 by 6 weeks. 3) 06/18/24 Patient to improve quick dash score to 15 or better by 6 weeks. Plan: Continue skilled OT per current POC. Start Time: 02:30pm End Time: 03:15pm MARIELOS Preston/Alta, CHT documented in this encounter Plan of Treatment Not on file documented as of this encounter Visit Diagnoses Diagnosis Carpal tunnel syndrome, left upper limb- Primary Lesion of ulnar nerve, left upper limb documented in this encounter Care Teams Personnel Arbitrator Relationship Specialty Start Date End Date Mihai Perdomo MD PCP - General Family Practice 12/15/22 Molly Eid, PT Physical Therapist Physical Therapy 12/07/22 documented as of this encounter
--- OUTSIDE RECORDS SUMMARY | 2024-06-26 11:23 | XMS_ITS | Referral Summary ---
Author Organization [facility] Address [address] [place] [address] Care Team Providers Care Utility Arborist Name Role Phone Molly Eid PT Unavailable Mihai Hopkins MD Primary Care Provider [phone] Encounters Date Type Department Care Team Description 06/25/2024 2:30 PM CDT Therapy [facility] Occupational Therapy [address] [place] [phone] Cathie Renteria OT Carpal tunnel syndrome, left upper limb (Primary Dx); Lesion of ulnar nerve, left upper limb 06/18/2024 Plan of Care Documentation [facility]ational Therapy [address] [place] [phone] 06/18/2024 2:30 PM CDT Therapy [facility] [address] [place] [phone] Cathie Renteria OT Carpal tunnel syndrome, left upper limb; Lesion of ulnar nerve, left upper limb from Last 3 Months Allergies Active Allergy Reactions Criticality Noted Date [...] Date Diagnosed Date Bilateral impacted cerumen 10/13/2023 Social History Tobacco Use Types Packs/Day Years Used Date Smoking Tobacco: Never Smokeless Tobacco: Never Sex and Gender Information Value Date Recorded Sex Assigned at Not on file 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
[2024-06-26 19:04] LABS: Creatinine Urine 180.8 mg/dL
[2024-06-26 19:07] LABS: Microalbumin Urine Random 48.9 mg/L (0-16.7)
[2024-06-26 20:13] LABS: Hemoglobin A1C 8.2 % (<5.7)
== END 2024-06-26 11:16 | disposition home or self-care (01) ==
LOC: ANHBWCLAB 11:19
PROVIDERS: PCP Family Medicine; Visit Provider Family Medicine
DX: E11.9 Type 2 diabetes mellitus without complications (principal)
CPT/HCPCS: 36415; 82043; 83036

== ENCOUNTER 2025-01-16 11:56 | Outpatient (CLI) | payer OTHER, SELFPAY ==
[2025-01-16 19:09] LABS: Hematocrit 48.6 % (42.0-52.0); Hemoglobin 16.1 g/dL (14.0-18.0); Immature Granulocyte Percent A 0.4 % (0-0.5); Lymphocytes Absolute Auto 2.47 K/mm3 (0.9-3.2); Mean Corpuscular HGB Conc 33.1 g/dl (32-36); Mean Corpuscular Hemoglobin 29.3 pg (26-34); Mean Corpuscular Volume 88.4 fl (80-100); Nucleated Red Blood Cells Absolute Auto 0.000 K/mm3 (0.0-0.012); Nucleated Red Blood Cells Perc 0.0 % (0.0-0.2); Platelet Count Result 317 k/mm3 (150-375); Red Blood Count 5.50 M/mm3 (4.6-6.20); White Blood Count 9.4 K/mm3 (4.5-10.0)
[2025-01-16 19:29] LABS: Hemoglobin A1C 9.9 % (<5.7)
[2025-01-16 19:42] LABS: Cholesterol 254 mg/dL (0-200); HDL Direct 56 mg/dL; Triglycerides 110 mg/dL (<150)
[2025-01-16 19:43] LABS: Alanine Aminotransferase 20 U/L (6-50); Albumin Level 4.7 g/dL (3.5-5.1); Alkaline Phosphatase 90 U/L (38-126); Anion Gap 7 mmol/L (4-12); Aspartate Amino Transferase 67 U/L (17-59); Bilirubin,Total 0.6 mg/dL (0.2-1.3); Blood Urea Nitrogen 18 mg/dL (9-20); Calcium 9.8 mg/dL (8.4-10.2); Carbon Dioxide 24 mmol/L (22-30); Chloride 104 mmol/L (98-107); Estimated Glomerular Filt Rate > 60; Glucose 243 mg/dL (65-110); Potassium 4.6 mmol/L (3.4-5.0); Sodium 135 mmol/L (137-145); Total Protein 7.9 g/dL (6.3-8.2)
[2025-01-16 19:50] LABS: MALB Creatinine Ratio 25.6 mg/g (0-30)
== END 2025-01-16 11:57 | disposition home or self-care (01) ==
PROVIDERS: PCP Family Medicine; Visit Provider Family Medicine
DX: I10 Essential (primary) hypertension (principal); E11.9 Type 2 diabetes mellitus without complications; Z00.00 Encounter for general adult medical examination without abnormal findings; G43.909 Migraine, unspecified, not intractable, without status migrainosus; R42 Dizziness and giddiness
CPT/HCPCS: 36415; 80053; 80061; 82043; 83036; 85025